=== PATIENT | female | born 1960 | race Caucasian/White ===

== ENCOUNTER 2018-03-26 08:50 | Inpatient (IN) ==
[2018-03-26] MEDS ORDERED: Sod Chloride 0.9% Inj 1,000 ML IV.SIG ONE (09:30)
[2018-03-26] MEDS ORDERED: Morphine Inj 4 MG/ML Vial IV.PUSH ONE (09:30)
--- NOTE | 2018-03-26 09:34 | ED ---
HPI General Chief Complaint: Abdominal Pain Stated Complaint: Abd pain/Phy sent Time Seen by Provider: 03/26/18 09:23 History of Present Illness HPI narrative: Patient presents to the emergency department complaining of lower abdominal pain. Pain is primarily in the right lower quadrant with radiation to suprapubic area, cramping, started 2 days ago, decreased appetite, 9.5 out of 10, no aggravating factors, alleviated somewhat by acetaminophen. Patient tried to take Bentyl but that did not help the symptoms. Is also reporting decreased appetite, subjective fever and chills, nausea but no vomiting, loose stools which is chronic for her. She denies vaginal discharge or dysuria. Related Data Home Medications Medication Instructions Recorded Confirmed atenolol 100 mg PO DAILY 03/26/18 03/26/18 azathioprine 50 mg PO TID 03/26/18 03/26/18 dicyclomine 10 mg PO QID 03/26/18 03/26/18 lisinopril 10 mg PO DAILY 03/26/18 03/26/18 mesalamine 800 mg PO TID 03/26/18 03/26/18 simvastatin [Zocor] 20 mg PO QPM 03/26/18 03/26/18 spironolactone 25 mg PO DAILY 03/26/18 03/26/18 Allergies Allergy/AdvReac Type Severity Reaction Status Date / Time No Known Allergies Allergy Verified 03/26/18 09:13 Review of Systems ROS: all other systems reviewed are negative [facility] Medical History Medical History Crohn's disease (Acute) HBP (high blood pressure) (Acute) High cholesterol (Acute) Surgical History Surgical History History of hip surgery (Acute) Social History Social History Substance History: No History of Abuse Second Hand Smoke Exposure: No Smoking Status: Never smoker How Often Do You Have a Drink Containing Alcohol: 2 to 4 times a month Recent Travel in [facility] within the Last 8 Weeks: No Recent Out of Country Travel within the Last 8 Weeks: No Immunization History Tetanus Immunization: >5 Years Hx Influenza Vaccine This Season: No Exam Narrative Exam Narrative: GENERAL: No acute distress. SKIN: Focused skin assessment warm/dry. HEAD: Atraumatic. Normocephalic. EYES: Pupils equal and round. No scleral icterus. No injection or drainage. ENT: No nasal bleeding or discharge. Mucous membranes pink and moist. NECK: Trachea midline. No JVD. CARDIOVASCULAR: Regular rate and rhythm. No murmur appreciated. RESPIRATORY: No accessory muscle use. Clear to auscultation. Breath sounds equal bilaterally. GASTROINTESTINAL: Abdomen soft, right lower quadrant tenderness, obese. Hepatic and splenic margins not palpable. MUSCULOSKELETAL: No obvious deformities. No clubbing. No cyanosis. No edema. NEUROLOGICAL: Awake and alert. No obvious cranial nerve deficits. Motor grossly within normal limits. Normal speech. PSYCHIATRIC: Appropriate mood and affect; insight and judgment normal. Course Initial Documented Vital Signs Temperature 98.1 F 03/26/18 08:52 Pulse Rate 85 03/26/18 08:52 Respiratory Rate 20 03/26/18 08:52 Blood Pressure 156/88 H 03/26/18 08:52 Pulse Oximetry 97 03/26/18 08:52 Last Documented Vital Signs Temperature 98.0 F 03/26/18 10:31 Pulse Rate 78 03/26/18 10:31 Respiratory Rate 16 03/26/18 10:31 Blood Pressure 120/83 03/26/18 10:31 Pulse Oximetry 99 03/26/18 10:31 Medical Decision Making [facility] Narrative Medical decision making narrative: Patient presents to the emergency department complaining of abdominal pain. Patient placed on court recording monitor, continuous pulse ox, and IV access obtained. Labs, CT abdomen and pelvis, 1 L IV normal saline, 2 mg IV morphine, and 4 mg IV Zofran ordered. Labs: leukocytosis, + UTI, increased PLT CT abd/pelvis: CONCLUSION:1. Patient's symptoms are probably due to some hydronephrosis and hydroureter of the right kidney.2. At least partial renal obstruction is due to the inflammatory process identified in the deep pelvis. There is thickening of the distal descending and most of the sigmoid colon with pericolonic stranding.The right ureter passes through this inflammatory process.3. Findings in the sigmoid are nonspecific. This could represent Crohn' s disease as reported in the clinical history. However, other entities include an inflammatory carcinoma or possibly diverticulitis although no discrete diverticula are identified. Endoscopy may be useful for further evaluation.4. Stable, benign-appearing 1 cm cyst laterally in the midpole of the left kidney. Patient given cipro 400mg IV and flagyl 500mg IV, will be admitted. Differential Diagnosis Differential Diagnosis: Appendicitis, UTI, kidney stone, pyelonephritis, Lab Data Result diagrams: 03/26/18 09:49 03/26/18 09:49 Lab Results 03/26/18 03/26/18 03/26/18 Range/Units 09:49 09:49 09:49 WBC 15.0 H (4.0-11.0) th/mm3 RBC 4.47 (4.00-5.30) mil/mm3 Hgb 12.8 (11.6-15.3) gm/dL Hct 38.6 (35.0-46.0) % MCV 86.5 (80.0-100.0) fL MCH 28.6 (27.0-34.0) pg MCHC 33.0 (32.0-36.0) % RDW 16.3 (11.6-17.2) % Plt Count 466 H (150-450) th/mm3 MPV 7.4 (7.0-11.0) fL Neut % (Auto) 87.8 H (16.0-70.0) % Lymph % (Auto) 5.1 L (9.0-44.0) % Tate % (Auto) 6.6 (0.0-8.0) % Eos % (Auto) 0.3 (0.0-4.0) % Baso % (Auto) 0.2 (0.0-2.0) % Neut # (Auto) 13.2 H (1.8-7.7) th/mm3 Lymph # (Auto) 0.8 L (1.0-4.8) th/mm3 Tate # (Auto) 1.0 H (0.0-0.9) th/mm3 Eos # (Auto) 0.0 (0.0-0.4) th/mm3 Baso # (Auto) 0.0 (0.0-0.2) th/mm3 WBC Differential . Differential Comment Auto diff final Sodium 136 (136-145) meq/L Potassium 3.6 (3.5-5.1) meq/L Chloride 100 (98-107) meq/L Carbon Dioxide 27.4 (21.0-32.0) meq/L Anion Gap 9 (5-15) meq/L BUN 13 (7-18) mg/dL Creatinine 0.70 (0.50-1.00) mg/dL Estimated GFR 86 L (>89) mL/min Random Glucose 123 H (74-106) mg/dL Lactic Acid 1.3 (0.4-2.0) mmol/L Calcium 9.3 (8.5-10.1) mg/dL Total Bilirubin 0.5 (0.2-1.0) mg/dL AST 13 L (15-37) U/L ALT 17 (10-53) U/L Alkaline Phosphatase 86 (45-117) U/L Total Protein 8.4 H (6.4-8.2) g/dL Albumin 3.1 L (3.4-5.0) g/dL Lipase 97 (73-393) U/L Urine Color (Yellw/Straw) Urine Clarity (Clear) Urine pH (5.0-8.5) Ur Specific [place] (1.002-1.035) Urine Protein (Neg-Trace) mg/dL Urine Glucose (UA) (Negative) mg/dL Urine Ketones (Negative) mg/dL Urine Occult Blood (Negative) Urine Nitrate (Negative) Urine Bilirubin (Negative) Urine Urobilinogen (Less than 2) mg/dL Ur Leukocyte Esterase (Negative) Urine RBC (0-3) /hpf Urine WBC (0-5) /hpf Ur Squamous Epith Cells (0-5) /hpf Urine Bacteria (None) /hpf Urine Mucus (Occasional) /lpf Micro UA Comment Urine Culture Comments 03/26/18 Range/Units 09:49 WBC (4.0-11.0) th/mm3 RBC (4.00-5.30) mil/mm3 Hgb (11.6-15.3) gm/dL Hct (35.0-46.0) % MCV (80.0-100.0) fL MCH (27.0-34.0) pg MCHC (32.0-36.0) % RDW (11.6-17.2) % Plt Count (150-450) th/mm3 MPV (7.0-11.0) fL Neut % (Auto) (16.0-70.0) % Lymph % (Auto) (9.0-44.0) % Tate % (Auto) (0.0-8.0) % Eos % (Auto) (0.0-4.0) % Baso % (Auto) (0.0-2.0) % Neut # (Auto) (1.8-7.7) th/mm3 Lymph # (Auto) (1.0-4.8) th/mm3 Tate # (Auto) (0.0-0.9) th/mm3 Eos # (Auto) (0.0-0.4) th/mm3 Baso # (Auto) (0.0-0.2) th/mm3 WBC Differential Differential Comment Sodium (136-145) meq/L Potassium (3.5-5.1) meq/L Chloride (98-107) meq/L Carbon Dioxide (21.0-32.0) meq/L Anion Gap (5-15) meq/L BUN (7-18) mg/dL Creatinine (0.50-1.00) mg/dL Estimated GFR (>89) mL/min Random Glucose (74-106) mg/dL Lactic Acid (0.4-2.0) mmol/L Calcium (8.5-10.1) mg/dL Total Bilirubin (0.2-1.0) mg/dL AST (15-37) U/L ALT (10-53) U/L Alkaline Phosphatase (45-117) U/L Total Protein (6.4-8.2) g/dL Albumin (3.4-5.0) g/dL Lipase (73-393) U/L Urine Color Cecy (Yellw/Straw) Urine Clarity Cloudy H (Clear) Urine pH 5.0 (5.0-8.5) Ur Specific [place] 1.023 (1.002-1.035) Urine Protein 30 H (Neg-Trace) mg/dL Urine Glucose (UA) Negative (Negative) mg/dL Urine Ketones 20 (Negative) mg/dL Urine Occult Blood Negative (Negative) Urine Nitrate Positive H (Negative) Urine Bilirubin Negative (Negative) Urine Urobilinogen Less than 2 (Less than 2) mg/dL Ur Leukocyte Esterase Moderate H (Negative) Urine RBC 2 (0-3) /hpf Urine WBC 47 H (0-5) /hpf Ur Squamous Epith Cells 10 (0-5) /hpf Urine Bacteria Moderate H (None) /hpf Urine Mucus Few H (Occasional) /lpf Micro UA Comment Culture indicated Urine Culture Comments Culture indicated Imaging Data Radiologist's impression: Abdomen/Pelvis CT 03/26/18 09:30 CONCLUSION: 1. Patient's symptoms are probably due to some hydronephrosis and hydroureter of the right kidney. 2. At least partial renal obstruction is due to the inflammatory process identified in the deep pelvis. There is thickening of the distal descending and most of the sigmoid colon with pericolonic stranding. The right ureter passes through this inflammatory process. 3. Findings in the sigmoid are nonspecific. This could represent Crohn's disease as reported in the clinical history. However, other entities include an inflammatory carcinoma or possibly diverticulitis although no discrete diverticula are identified. Endoscopy may be useful for further evaluation. 4. Stable, benign-appearing 1 cm cyst laterally in the midpole of the left kidney. Discharge Plan Discharge Disposition Patient Disposition: 30 Still Patient Discharge Condition Condition: Stable Discharge Details Diagnosis: Colitis Physicians Team ED Provider: Claudette Wright Primary Care Provider: Laron Jacobs Rxs /Orders / Referrals /Forms Prescriptions: No Action atenolol 100 mg Tablet 100 mg PO DAILY RF: 0 azathioprine 50 mg Tablet 50 mg PO TID RF: 0 spironolactone 25 mg Tablet 25 mg PO DAILY RF: 0 simvastatin [Zocor] 20 mg Tablet 20 mg PO QPM RF: 0 lisinopril 10 mg Tablet 10 mg PO DAILY RF: 0 dicyclomine 10 mg Capsule 10 mg PO QID RF: 0 mesalamine 400 mg Capsule (With Del Rel Tablets) 800 mg PO TID RF: 0 Status ED Status: Admitted Patient
[2018-03-26 10:04] LABS: Baso % (Auto) 0.2 % (0.0-2.0); Eos % (Auto) 0.3 % (0.0-4.0); Hematocrit 38.6 % (35.0-46.0); Hemoglobin 12.8 gm/dL (11.6-15.3); Lymph # (Auto) 0.8 th/mm3 (1.0-4.8); Lymph % (Auto) 5.1 % (9.0-44.0); Mean Corpuscular Hemoglobin 28.6 pg (27.0-34.0); Mean Corpuscular Volume 86.5 fL (80.0-100.0); Mean Platelet Volume 7.4 fL (7.0-11.0); Mono % (Auto) 6.6 % (0.0-8.0); Neut # (Auto) 13.2 th/mm3 (1.8-7.7); Neut % (Auto) 87.8 % (16.0-70.0); Platelet Count 466 th/mm3 (150-450); Red Blood Count 4.47 mil/mm3 (4.00-5.30); Red Cell Distribution Width 16.3 % (11.6-17.2)
[2018-03-26 10:09] LABS: Bacteria,Urine Moderate /hpf; Bilirubin,Urine Negative (Negative); Clarity,Urine Cloudy (Clear); Color,Urine Amber (Yellw/Straw); Glucose,Urine (UA) Negative (Negative); Leukocyte Esterase,Urine Moderate (Negative); Mucus,Urine Few /lpf (Occasional); Nitrite,Urine Positive (Negative); Specific Gravity,Urine 1.023 (1.002-1.035); Squamous Epithelial Cell,Urine 10 /hpf (0-5)
[2018-03-26 10:22] LABS: Albumin 3.1 g/dL (3.4-5.0); Anion Gap 9 meq/L (5-15); Aspartate Aminotransferase 13 U/L (15-37); Blood Urea Nitrogen 13 mg/dL (7-18); Calcium 9.3 mg/dL (8.5-10.1); Carbon Dioxide 27.4 meq/L (21.0-32.0); Chloride 100 meq/L (98-107); Glomerular Filtration Rate 86 mL/min (>89); Glucose,Random 123 mg/dL (74-106); Lipase 97 U/L (73-393); Potassium 3.6 meq/L (3.5-5.1); Sodium 136 meq/L (136-145)
[2018-03-26 10:24] LABS: Alanine Aminotransferase 17 U/L (10-53)
[2018-03-26 10:26] LABS: Alkaline Phosphatase 86 U/L (45-117); Total Protein 8.4 g/dL (6.4-8.2)
--- NOTE | 2018-03-26 11:29 | CT ---
EXAM DATE: 03/26/2018 11:16 AM EDT AGE/SEX: 57 years / Female INDICATIONS: Right sided abdomen pain for ten days. CLINICAL DATA: This is the patient's initial encounter. Patient reports that signs and symptoms have been present for 2 weeks and indicates a pain score of 7/10. MEDICAL/SURGICAL HISTORY: . Crohn's . right hip replacement ORAL CONTRAST: No oral contrast ingested. RADIATION DOSE: 11.75 CTDI (mGy) COMPARISON: POI, CT ABDOMEN AND PELVIS W AND W/O CONTRAST, 08/22/2017. . TECHNIQUE: Multiple contiguous axial images were obtained through the abdomen and pelvis following b olus infusion of 73 ml Omnipaque 350 (iohexol) nonionic water-soluble contrast as a single exam dos e. No oral contrast ingested. Using automated exposure control and adjustment of the mA and/or kV ac cording to patient size, radiation dose was kept as low as reasonably achievable to obtain optimal di agnostic quality images. DICOM format image data is available electronically for review and comparis on. FINDINGS: Lower Lungs: The visualized lower lungs are clear. Liver: The liver has a homogeneous density without space-occupying lesion. There is no dilation of th e biliary tree. Spleen: Homogeneous density without enlargement. Pancreas: Unremarkable without mass or calcification. Kidneys: Benign-appearing 1.1 cm cyst laterally in the midpole of the left kidney. Mild hydronephros is and hydroureter of the right kidney appears to be due to partial distal ureteric obstruction as it traverses through the inflammatory process adjacent to the sigmoid in the deep pelvis. Adrenal Glands: Unremarkable. Aorta: The aorta and proximal iliac vessels are grossly unremarkable without aneurysmal dilation. Bowel/Mesentery: There is an abnormal appearance of the distal descending colon and most of the sigm oid. The bowel wall is thickened in this location with pericolonic stranding. This does represent int erval worsening from the prior exam. No significant diverticular disease is identified, however. Abdominal Wall: Intact. Retroperitoneum: No evidence of adenopathy in the retrocrural, para-aortic, or deep pelvic regions. Bladder: Contours are smooth. Reproductive Organs: No abnormal masses or calcifications seen. Inguinal: The inguinal region is unremarkable without evidence of adenopathy. Bony Structures: Vacuum joint phenomenon in the SI joints bilaterally. There is also some asymmetric sclerosis on the left ilium characteristic of a sacroiliitis Post Contrast: No abnormal areas of enhancement seen. CONCLUSION: 1. Patient's symptoms are probably due to some hydronephrosis and hydroureter of the right kidney. 2. At least partial renal obstruction is due to the inflammatory process identified in the deep pelv is. There is thickening of the distal descending and most of the sigmoid colon with pericolonic stran ding. The right ureter passes through this inflammatory process. 3. Findings in the sigmoid are nonspecific. This could represent Crohn's disease as reported in the clinical history. However, other entities include an inflammatory carcinoma or possibly diverticuliti s although no discrete diverticula are identified. Endoscopy may be useful for further evaluation. 4. Stable, benign-appearing 1 cm cyst laterally in the midpole of the left kidney. Electronically signed by: Anthony Cuellar MD 03/26/2018 11:28 AM EDT
[2018-03-26] MEDS ORDERED: Ciprofloxacin 400 MG/200 ML 400 MG/200 ML PIGGYBACK IV.SIG ONE (11:36)
[2018-03-26] MEDS ORDERED: Zolpidem Tartrate 5 MG Tablet PO PRN (12:17)
[2018-03-26] MEDS ORDERED: Acetaminophen 325 MG Tablet PO PRN (12:19)
[2018-03-26] MEDS ORDERED: Naloxone Inj 0.4 MG/ML Vial IV.PUSH PRN (12:19)
[2018-03-26] MEDS: KCL 20 mEq/D5W/NaCl 0.45% Inj 1,000 ML IV.CONT SCH (12:58)
--- NOTE | 2018-03-26 13:00 | P.HPIM ---
History of Present Illness Primary Care Physician: Laron Jacobs MD Chief Complaint: Abdominal pain nausea History of Present Illness: 57-year-old white female with a history of Crohn's disease, hypertension, hyperlipidemia presents to the emergency room with a 10 day history of worsening symptoms of right sided abdominal pain mostly in the lower area associated with nausea and intermittent fevers and chills. She has not had any active vomiting but had poor appetite during the past week. She states there is no significant changes in her bowel movement but does describe it as loose and nonbloody. She states that she is currently on 2 different types of medication for her Crohn's disease and is being seen by Dr. Weems. She has not had any changes in medication or dosages recently. She denies any recent sick contacts. She denies any symptoms of dysuria, urinary frequency, urgency, nor hematuria or any unusual vaginal discharge. - Diagnosis (1) Colitis Inpatient Certification: I certify that the inpatient services were ordered in accordance with Medicare regulations governing the order. This includes certification that hospital inpatient services are reasonable and necessary and in the case of services not specified as inpatient-only under 42 CFR 419.22(n), that they are appropriately provided as inpatient services in accordance to with the 2-midnight benchmark under 43 CFR 412.3(e) Estimated Total Length of Stay (Days): 3 Plans for Post Hospital Care: Home Review of Systems All other systems reviewed negative except as stated in HPI PMFSH - History History Provided By: Patient - Medical History Medical History: Medical History (Last Reviewed 03/26/18 @ 12:52 by Jazmin Freire MD) Crohn's disease HBP (high blood pressure) High cholesterol - Surgical History Surgical History: Surgical History (Last Updated 03/26/18 @ 12:52 by Jazmin Freire MD) History of hip surgery - Family History Family History: Family History (Last Updated 03/26/18 @ 12:53 by Jazmin Freire MD) Mother Family history of breast cancer Parkinson disease Father COPD (chronic obstructive pulmonary disease) - Tobacco History Second Hand Smoke Exposure: No Smoking Status: Never smoker - Alcohol History How Often Do You Have a Drink Containing Alcohol: 2 to 4 times a month - Substance Use History Substance History: No History of Abuse - Travel History Recent Travel in the [place] Within the Last 8 Weeks: No Recent Travel Out of the Country Within the Last 8 Weeks: No - Immunization History Tetanus Immunization: >5 Years Hx Influenza Vaccine This Season: No Medications and Allergies Active Medications: Active Medications Acetaminophen (Tylenol) 650 mg PO Q6H PRN PRN Reason: PAIN SCALE 1 TO 2 Hydrocodone Bitart/Acetaminophen ([place] 5/325) 1 tab PO Q4H PRN PRN Reason: PAIN SCALE 3 TO 5 Hydrocodone Bitart/Acetaminophen ([place] 7.5/325) 1 tab PO Q4H PRN PRN Reason: PAIN SCALE 6 TO 10 Enoxaparin Sodium (Lovenox Inj) 40 mg SQ Q24H ADALBERTO Ciprofloxacin/Dextrose (Cipro 400 Mg/200 Ml Inj) 400 mg in 200 mls @ 200 mls/ hr IV.SIG Q12H ADALBERTO Metronidazole/Sodium Chloride (Flagyl 500 Mg Inj) 100 mls @ 100 mls/hr IV.SIG Q8H ADALBERTO Potassium Chloride/Dextrose/Sod Cl (D5w/1/2ns + Kcl 20 Meq Inj) 1,000 mls @ 100 mls/hr IV.CONT .Q10H ADALBERTO Morphine Sulfate (Morphine Inj) 4 mg IV.PUSH Q3H PRN PRN Reason: PAIN 6-10;IF UNABLE TO TAKE PO Naloxone HCl (Narcan Inj) 0.4 mg IV.PUSH UNSCH PRN PRN Reason: SEE LABEL COMMENTS Ondansetron HCl (Zofran Inj) 4 mg IV.PUSH Q6H PRN PRN Reason: NAUSEA OR VOMITING Zolpidem Tartrate (Ambien) 5 mg PO HS PRN PRN Reason: INSOMNIA Allergies Allergy/AdvReac Type Severity Reaction Status Date / Time No Known Allergies Allergy Verified 03/26/18 09:13 Home Medications Medication Instructions Recorded Confirmed Type atenolol 100 mg PO DAILY 03/26/18 03/26/18 History azathioprine 50 mg PO TID 03/26/18 03/26/18 History dicyclomine 10 mg PO QID 03/26/18 03/26/18 History lisinopril 10 mg PO DAILY 03/26/18 03/26/18 History mesalamine 800 mg PO TID 03/26/18 03/26/18 History simvastatin [Zocor] 20 mg PO QPM 03/26/18 03/26/18 History spironolactone 25 mg PO DAILY 03/26/18 03/26/18 History Exam Vital signs: Vital Signs 03/26/18 08:52 03/26/18 09:45 03/26/18 10:31 Temperature 98.1 F 98.0 F Pulse Rate 85 78 Respiratory Rate 20 17 16 Blood Pressure 156/88 H 120/83 Pulse Oximetry 97 99 03/26/18 12:17 Temperature 97.8 F Pulse Rate 74 Respiratory Rate 16 Blood Pressure 126/77 Pulse Oximetry 98 Intake & Output 03/25/18 03/26/18 03/26/18 18:59 06:59 18:59 Intake Total 1000 / 1000 Balance 1000 / 1000 Weight 97.522 kg Intake: IV 1000 / 1000 NS Inj 1,000 ML @ Wide Open IV. 1000 / 1000 SIG BOLUS ONE Rx#:[id number] Narrative: GENERAL: Well-nourished, obese white female in no acute distress SKIN: Warm and dry. HEAD: Atraumatic. Normocephalic. EYES: Pupils equal and round. No scleral icterus. No injection or drainage. ENT: No nasal bleeding or discharge. Mucous membranes pink and moist. NECK: Trachea midline. No JVD. CARDIOVASCULAR: Regular rate and rhythm. RESPIRATORY: No accessory muscle use. Clear to auscultation. Breath sounds equal bilaterally. GASTROINTESTINAL: Abdomen soft, right lower quadrant tenderness on palpation with no guarding or rebound, nondistended. Hepatic and splenic margins not palpable. Normoactive bowel sounds MUSCULOSKELETAL: Extremities without clubbing, cyanosis, or edema. No obvious deformities. NEUROLOGICAL: Awake and alert to person place time situation. No obvious cranial nerve deficits. Motor grossly within normal limits. Five out of 5 muscle strength in the arms and legs. Normal speech. PSYCHIATRIC: Appropriate mood and affect; insight and judgment normal. Results - Labs CBC & Chem 7: 03/26/18 09:49 03/26/18 09:49 Labs: Short CBC 03/26/18 Range/Units 09:49 WBC 15.0 H (4.0-11.0) th/mm3 Hgb 12.8 (11.6-15.3) gm/dL Hct 38.6 (35.0-46.0) % Plt Count 466 H (150-450) th/mm3 BMP 03/26/18 09:49 Sodium 136 Potassium 3.6 Chloride 100 Carbon Dioxide 27.4 BUN 13 Creatinine 0.70 Calcium 9.3 Liver Function 03/26/18 Range/Units 09:49 Total Bilirubin 0.5 (0.2-1.0) mg/dL AST 13 L (15-37) U/L ALT 17 (10-53) U/L Alkaline Phosphatase 86 (45-117) U/L Albumin 3.1 L (3.4-5.0) g/dL Urine 03/26/18 Range/Units 09:49 Urine Color Cecy (Yellw/Straw) Urine Clarity Cloudy H (Clear) Urine pH 5.0 (5.0-8.5) Ur Specific [place] 1.023 (1.002-1.035) Urine Protein 30 H (Neg-Trace) mg/dL Urine Glucose (UA) Negative (Negative) mg/dL - Imaging Impressions Abdomen/Pelvis CT 03/26/18 09:30 CONCLUSION: 1. Patient's symptoms are probably due to some hydronephrosis and hydroureter of the right kidney. 2. At least partial renal obstruction is due to the inflammatory process identified in the deep pelvis. There is thickening of the distal descending and most of the sigmoid colon with pericolonic stranding. The right ureter passes through this inflammatory process. 3. Findings in the sigmoid are nonspecific. This could represent Crohn's disease as reported in the clinical history. However, other entities include an inflammatory carcinoma or possibly diverticulitis although no discrete diverticula are identified. Endoscopy may be useful for further evaluation. 4. Stable, benign-appearing 1 cm cyst laterally in the midpole of the left kidney. Caprini VTE Risk Assessment Caprini VTE Risk Assessment: Moderate/High Risk (score >= 2) Caprini Risk Assessment Model: Point Value = 1 Point Value = 2 Point Value = 3 Point Value = 5 Age 41-60 Minor surgery BMI > 25 kg/m2 Swollen legs Varicose veins or History of unexplained or recurrent spontaneous Oral contraceptives or hormone replacement Sepsis (< 1 month) Serious lung disease, including pneumonia (< 1 month) Abnormal pulmonary function Acute myocardial infarction Congestive heart failure (< 1 month) History of inflammatory bowel disease Medical patient at bed rest Age 61-74 Arthroscopic surgery Major open surgery (> 45 min) Laparoscopic surgery (> 45 min) Malignancy Confined to bed (> 72 hours) Immobilizing plaster cast Central venous access Age >= 75 History of VTE Family history of VTE Factor V Leiden Prothrombin [id number] Lupus anticoagulant Anticardiolipin antibodies Elevated serum homocysteine Heparin-induced thrombocytopenia Other congenital or acquired thrombophilia Stroke (< 1 month) Elective arthroplasty Hip, pelvis, or leg fracture Acute spinal cord injury (< 1 month) Prophylaxis Regimen: Total Risk Factor Score Risk Level Prophylaxis Regimen 0-1 Low Early ambulation 2 Moderate Order ONE of the following: *Sequential Compression Device (SCD) *Heparin 5000 units SQ BID 3-4 Higher Order ONE of the following medications: *Heparin 5000 units SQ TID *Enoxaparin/Lovenox 40 mg SQ daily (WT < 150 kg, CrCl > 30 mL/min) *Enoxaparin/Lovenox 30 mg SQ daily (WT < 150 kg, CrCl > 10-29 mL/min) *Enoxaparin/Lovenox 30 mg SQ BID (WT < 150 kg, CrCl > 30 mL/min) AND/OR *Sequential Compression Device (SCD) 5 or more Highest Order ONE of the following medications: *Heparin 5000 units SQ TID (Preferred with Epidurals) *Enoxaparin/Lovenox 40 mg SQ daily (WT < 150 kg, CrCl > 30 mL/min) *Enoxaparin/Lovenox 30 mg SQ daily (WT < 150 kg, CrCl > 10-29 mL/min) *Enoxaparin/Lovenox 30 mg SQ BID (WT < 150 kg, CrCl > 30 mL/min) AND *Sequential Compression Device (SCD) Assessment and Plan - Assessment (1) Colitis Code(s): K52.9 - Noninfective gastroenteritis and colitis, unspecified Status : Acute - Plan 57-year-old white female with a history of Crohn's disease presents with 10 day history of intractable worsening right lower abdominal pain 1. Acute colitis suspect acute exacerbation of Crohn's diseasekeep patient n.p.o. with pain control. IV fluid hydration and supportive care. Start IV Cipro and Flagyl. Obtain a GI consultation for further recommendations. 2. Hypertension, chronic essential resume home QUINTON inhibitor, IV Vasotec as needed for uncontrolled blood pressure. 3. Hyperlipidemiaresume statin. 4. Mild right hydronephrosis with partial renal obstructionurology evaluation for further recommendations. External Colon Inflammation likely contributing to this. 5. DVT prophylaxisLovenox.
[2018-03-26] MEDS: Enoxaparin Inj 40 MG/0.4 ML Syringe SQ SCH (13:03)
--- NOTE | 2018-03-26 13:57 | P.CONGI ---
History of Present Illness Consult date: 03/26/18 Consult reason: Crohns Chief complaint: colitis, UTI, h/o Crohn's History of Present Illness: This is a 57 yo F with GI history significant for Crohns disease, followed outpatient by Dr. Weems, currently she is on Azathioprine and Mesalamine TID. Pt was previously advised to be on Remicade but due to a high copay she was never started on this. Pt presented to the ER today with complaints of RLQ abdominal pain, states pain has been intermittent for ten days but has become more constant over the past three days. Pain is described as sharp and aching has been preventing pt from being able to sleep. States pain radiates towards midline, but also has a pain in her lower back. States has multiple, loose BMs a day, which is normal for her but they have had more mucous in them lately. Denies any fecal incontinence, hematochezia, and melena. Reports some nausea but denies any emesis. Office records reviewed, pt had a colonoscopy Aug 25 during active Crohns flare and then repeat colonoscopy on Sep 08 --> Normal terminal ileum, abnormal mucosa in the cecum, sigmoid, ascending, transverse, and descending colon. Mucosa was erythematous, friable and had granularity, loss of vascularity, scarring, deep ulcers, vascular ectasia, erosions and pseudopolyps. Colonic mucosa appeared normal in the rectum. Pt reports history of KELI when she was first diagnosed with Crohns in 2009, renal function improved to normal and she has not recently followed up with urology. Pt denies any flank pain, urinary frequency or incontinence. Does report urinary urgency but states this is chronic. Denies family history of colon cancer. Drinks alcohol 1-2 times a week. Denies smoking. <Marcelle Vargas - Last Filed: 03/26/18 13:59> Review of Systems Constitutional: Reports fever(s), Reports night sweats, Reports weight loss Gastrointestinal: Reports abdominal pain, Reports loose stools, Reports nausea, Denies black, tarry stools, Denies bright, red blood in stools, Denies vomiting Comments: mucous stools <Marcelle Vargas - Last Filed: 03/26/18 13:59> PMFSH - History History Provided By: Patient - Medical History Medical History: Medical History (Last Reviewed 03/26/18 @ 12:52 by Jazmin Freire MD) Crohn's disease HBP (high blood pressure) High cholesterol - Surgical History Surgical History: Surgical History (Last Updated 03/26/18 @ 12:52 by Jazmin Freire MD) History of hip surgery - Family History Family History: Family History (Last Updated 03/26/18 @ 12:53 by Jazmin Freire MD) Mother Family history of breast cancer Parkinson disease Father COPD (chronic obstructive pulmonary disease) - Tobacco History Second Hand Smoke Exposure: No Smoking Status: Never smoker - Alcohol History How Often Do You Have a Drink Containing Alcohol: 2 to 4 times a month - Substance Use History Substance History: No History of Abuse - Travel History Recent Travel in the [place] Within the Last 8 Weeks: No Recent Travel Out of the Country Within the Last 8 Weeks: No - Immunization History Tetanus Immunization: >5 Years Hx Influenza Vaccine This Season: No <Marcelle Vargas - Last Filed: 03/26/18 13:59> - Medical History Medical History: Medical History (Last Reviewed 03/26/18 @ 12:52 by Jazmin Freire MD) Crohn's disease HBP (high blood pressure) High cholesterol - Surgical History Surgical History: Surgical History (Last Updated 03/26/18 @ 12:52 by Jazmin Freire MD) History of hip surgery - Family History Family History: Family History (Last Updated 03/26/18 @ 12:53 by Jazmin Freire MD) Mother Family history of breast cancer Parkinson disease Father COPD (chronic obstructive pulmonary disease) <Cole Ricardo - Last Filed: 03/26/18 21:50> Medications and Allergies Active Medications: Active Medications Acetaminophen (Tylenol) 650 mg PO Q6H PRN PRN Reason: PAIN SCALE 1 TO 2 Hydrocodone Bitart/Acetaminophen ([place] 5/325) 1 tab PO Q4H PRN PRN Reason: PAIN SCALE 3 TO 5 Hydrocodone Bitart/Acetaminophen ([place] 7.5/325) 1 tab PO Q4H PRN PRN Reason: PAIN SCALE 6 TO 10 Last Admin: 03/26/18 13:08 Dose: 1 tab Atenolol (Tenormin) 100 mg PO DAILY [facility] Azathioprine (Imuran) 50 mg PO TID [facility] Dicyclomine HCl (Bentyl) 10 mg PO QID [facility] Enalaprilat (Vasotec Inj) 1.25 mg IV.PUSH Q6H PRN PRN Reason: SEE LABEL COMMENTS Enoxaparin Sodium (Lovenox Inj) 40 mg SQ Q24H [facility] Last Admin: 03/26/18 13:03 Dose: 40 mg Ciprofloxacin/Dextrose (Cipro 400 Mg/200 Ml Inj) 400 mg in 200 mls @ 200 mls/ hr IV.SIG Q12H [facility] Metronidazole/Sodium Chloride (Flagyl 500 Mg Inj) 100 mls @ 100 mls/hr IV.SIG Q8H [facility] Potassium Chloride/Dextrose/Sod Cl (D5w/1/2ns + Kcl 20 Meq Inj) 1,000 mls @ 100 mls/hr IV.CONT .Q10H [facility] Last Admin: 03/26/18 12:58 Dose: 100 mls/hr Lisinopril (Prinivil) 10 mg PO DAILY [facility] Morphine Sulfate (Morphine Inj) 4 mg IV.PUSH Q3H PRN PRN Reason: PAIN 6-10;IF UNABLE TO TAKE PO Naloxone HCl (Narcan Inj) 0.4 mg IV.PUSH UNSCH PRN PRN Reason: SEE LABEL COMMENTS Non-Formulary Medication (Mesalamine [Mesalamine]) 800 mg PO TID [facility] Non-Formulary Medication (Simvastatin [Zocor]) 20 mg PO QPM [facility] Ondansetron HCl (Zofran Inj) 4 mg IV.PUSH Q6H PRN PRN Reason: NAUSEA OR VOMITING Spironolactone (Aldactone) 25 mg PO DAILY [facility] Zolpidem Tartrate (Ambien) 5 mg PO HS PRN PRN Reason: INSOMNIA <Marcelle Vargas - Last Filed: 03/26/18 13:59> Active Medications: Active Medications Acetaminophen (Tylenol) 650 mg PO Q6H PRN PRN Reason: PAIN SCALE 1 TO 2 Hydrocodone Bitart/Acetaminophen ([place] 5/325) 1 tab PO Q4H PRN PRN Reason: PAIN SCALE 3 TO 5 Last Admin: 03/26/18 19:19 Dose: 1 tab Hydrocodone Bitart/Acetaminophen ([place] 7.5/325) 1 tab PO Q4H PRN PRN Reason: PAIN SCALE 6 TO 10 Last Admin: 03/26/18 13:08 Dose: 1 tab Atenolol (Tenormin) 100 mg PO DAILY [facility] Azathioprine (Imuran) 50 mg PO TID [facility] Last Admin: 03/26/18 21:15 Dose: 50 mg Dicyclomine HCl (Bentyl) 10 mg PO QID [facility] Last Admin: 03/26/18 21:16 Dose: 10 mg Enalaprilat (Vasotec Inj) 1.25 mg IV.PUSH Q6H PRN PRN Reason: SEE LABEL COMMENTS Enoxaparin Sodium (Lovenox Inj) 40 mg SQ Q24H [facility] Last Admin: 03/26/18 13:03 Dose: 40 mg Ciprofloxacin/Dextrose (Cipro 400 Mg/200 Ml Inj) 400 mg in 200 mls @ 200 mls/ hr IV.SIG Q12H [facility] Metronidazole/Sodium Chloride (Flagyl 500 Mg Inj) 100 mls @ 100 mls/hr IV.SIG Q8H [facility] Potassium Chloride/Dextrose/Sod Cl (D5w/1/2ns + Kcl 20 Meq Inj) 1,000 mls @ 100 mls/hr IV.CONT .Q10H [facility] Last Admin: 03/26/18 12:58 Dose: 100 mls/hr Lisinopril (Prinivil) 10 mg PO DAILY [facility] Mesalamine (Asacol Hd Dr) 800 mg PO TID [facility] Last Admin: 03/26/18 21:14 Dose: 800 mg Methylprednisolone Sodium Succinate (Solumedrol Inj) 40 mg IV.PUSH Q8HR [facility] Last Admin: 03/26/18 21:18 Dose: 40 mg Morphine Sulfate (Morphine Inj) 4 mg IV.PUSH Q3H PRN PRN Reason: PAIN 6-10;IF UNABLE TO TAKE PO Last Admin: 03/26/18 21:33 Dose: 4 mg Naloxone HCl (Narcan Inj) 0.4 mg IV.PUSH UNSCH PRN PRN Reason: SEE LABEL COMMENTS Ondansetron HCl (Zofran Inj) 4 mg IV.PUSH Q6H PRN PRN Reason: NAUSEA OR VOMITING Pravastatin Sodium (Pravachol) 40 mg PO QPM [facility] Last Admin: 03/26/18 21:15 Dose: 40 mg Spironolactone (Aldactone) 25 mg PO DAILY [facility] Zolpidem Tartrate (Ambien) 5 mg PO HS PRN PRN Reason: INSOMNIA <Hemaidan,Ammar - Last Filed: 03/26/18 21:50> Allergies Allergy/AdvReac Type Severity Reaction Status Date / Time No Known Allergies Allergy Verified 03/26/18 09:13 Home Medications Medication Instructions Recorded Confirmed Type atenolol 100 mg PO DAILY 03/26/18 03/26/18 History azathioprine 50 mg PO TID 03/26/18 03/26/18 History dicyclomine 10 mg PO QID 03/26/18 03/26/18 History lisinopril 10 mg PO DAILY 03/26/18 03/26/18 History mesalamine 800 mg PO TID 03/26/18 03/26/18 History simvastatin [Zocor] 20 mg PO QPM 03/26/18 03/26/18 History spironolactone 25 mg PO DAILY 03/26/18 03/26/18 History Exam Vital signs: Vital Signs 03/26/18 08:52 03/26/18 09:45 03/26/18 10:31 Temperature 98.1 F 98.0 F Pulse Rate 85 78 Respiratory Rate 20 17 16 Blood Pressure 156/88 H 120/83 Pulse Oximetry 97 99 03/26/18 12:17 Temperature 97.8 F Pulse Rate 74 Respiratory Rate 16 Blood Pressure 126/77 Pulse Oximetry 98 Intake & Output 03/25/18 03/26/18 03/26/18 18:59 06:59 18:59 Intake Total 1000 / 1000 Output Total 600 / 600 Balance 400 / 400 Weight 97.522 kg Intake: IV 1000 / 1000 NS Inj 1,000 ML @ Wide Open IV. 1000 / 1000 SIG BOLUS ONE Rx#:[id number] Output: Urine 600 / 600 Other: # Voids 2 - Constitutional no acute distress - Routine HEENT Exam Head: Present: normocephalic, atraumatic - Routine Respiratory Exam Absent: accessory muscle use - Routine Abdominal Exam Present: soft, normoactive bowel sounds, tenderness (mid lower abdominal tenderness ). Absent: distended - Routine Skin Exam Present: dry, warm - Routine Neurological Exam Present: alert, oriented X3 <Marcelle Vargas - Last Filed: 03/26/18 13:59> Vital signs: Vital Signs 03/26/18 08:52 03/26/18 09:45 03/26/18 10:31 Temperature 98.1 F 98.0 F Pulse Rate 85 78 Respiratory Rate 20 17 16 Blood Pressure 156/88 H 120/83 Pulse Oximetry 97 99 03/26/18 12:17 03/26/18 14:05 03/26/18 16:16 Temperature 97.8 F Pulse Rate 74 65 Respiratory Rate 16 16 16 Blood Pressure 126/77 138/62 Pulse Oximetry 98 03/26/18 20:00 Temperature 99.7 F H Pulse Rate 78 Respiratory Rate 18 Blood Pressure 130/71 Pulse Oximetry 98 Intake & Output 03/26/18 03/26/18 03/27/18 06:59 18:59 06:59 Intake Total 1000 / 1000 Output Total 600 / 600 Balance 400 / 400 Weight 97.52 kg Intake: IV 1000 / 1000 NS Inj 1,000 ML @ Wide Open IV. 1000 / 1000 SIG BOLUS ONE Rx#:[id number] Output: Urine 600 / 600 Other: # Voids 2 Weight On Admission 97.52 kg <Cole Ricardo - Last Filed: 03/26/18 21:50> Results - Labs CBC & Chem 7: 03/26/18 09:49 03/26/18 09:49 Labs: Laboratory Results - last 24 hr 03/26/18 03/26/18 03/26/18 09:49 09:49 09:49 WBC 15.0 H RBC 4.47 Hgb 12.8 Hct 38.6 MCV 86.5 MCH 28.6 MCHC 33.0 RDW 16.3 Plt Count 466 H MPV 7.4 Neut % (Auto) 87.8 H Lymph % (Auto) 5.1 L [place] % (Auto) 6.6 Eos % (Auto) 0.3 Baso % (Auto) 0.2 Neut # (Auto) 13.2 H Lymph # (Auto) 0.8 L [place] # (Auto) 1.0 H Eos # (Auto) 0.0 Baso # (Auto) 0.0 WBC Differential . Differential Comment Auto diff final Sodium 136 Potassium 3.6 Chloride 100 Carbon Dioxide 27.4 Anion Gap 9 BUN 13 Creatinine 0.70 Estimated GFR 86 L Random Glucose 123 H Lactic Acid 1.3 Calcium 9.3 Total Bilirubin 0.5 AST 13 L ALT 17 Alkaline Phosphatase 86 Total Protein 8.4 H Albumin 3.1 L Lipase 97 Urine Color Urine Clarity Urine pH Ur Specific [place] Urine Protein Urine Glucose (UA) Urine Ketones Urine Occult Blood Urine Nitrate Urine Bilirubin Urine Urobilinogen Ur Leukocyte Esterase Urine RBC Urine WBC Ur Squamous Epith Cells Urine Bacteria Urine Mucus Micro UA Comment Urine Culture Comments 03/26/18 09:49 WBC RBC Hgb Hct MCV MCH MCHC RDW Plt Count MPV Neut % (Auto) Lymph % (Auto) [place] % (Auto) Eos % (Auto) Baso % (Auto) Neut # (Auto) Lymph # (Auto) [place] # (Auto) Eos # (Auto) Baso # (Auto) WBC Differential Differential Comment Sodium Potassium Chloride Carbon Dioxide Anion Gap BUN Creatinine Estimated GFR Random Glucose Lactic Acid Calcium Total Bilirubin AST ALT Alkaline Phosphatase Total Protein Albumin Lipase Urine Color Cecy Urine Clarity Cloudy H Urine pH 5.0 Ur Specific [place] 1.023 Urine Protein 30 H Urine Glucose (UA) Negative Urine Ketones 20 Urine Occult Blood Negative Urine Nitrate Positive H Urine Bilirubin Negative Urine Urobilinogen Less than 2 Ur Leukocyte Esterase Moderate H Urine RBC 2 Urine WBC 47 H Ur Squamous Epith Cells 10 Urine Bacteria Moderate H Urine Mucus Few H Micro UA Comment Culture indicated Urine Culture Comments Culture indicated - Imaging Impressions Abdomen/Pelvis CT 03/26/18 09:30 CONCLUSION: 1. Patient's symptoms are probably due to some hydronephrosis and hydroureter of the right kidney. 2. At least partial renal obstruction is due to the inflammatory process identified in the deep pelvis. There is thickening of the distal descending and most of the sigmoid colon with pericolonic stranding. The right ureter passes through this inflammatory process. 3. Findings in the sigmoid are nonspecific. This could represent Crohn's disease as reported in the clinical history. However, other entities include an inflammatory carcinoma or possibly diverticulitis although no discrete diverticula are identified. Endoscopy may be useful for further evaluation. 4. Stable, benign-appearing 1 cm cyst laterally in the midpole of the left kidney. <Marcelle Vargas - Last Filed: 03/26/18 13:59> - Labs CBC & Chem 7: 03/26/18 09:49 03/26/18 09:49 Labs: Laboratory Results - last 24 hr 03/26/18 03/26/18 03/26/18 09:49 09:49 09:49 WBC 15.0 H RBC 4.47 Hgb 12.8 Hct 38.6 MCV 86.5 MCH 28.6 MCHC 33.0 RDW 16.3 Plt Count 466 H MPV 7.4 Neut % (Auto) 87.8 H Lymph % (Auto) 5.1 L [place] % (Auto) 6.6 Eos % (Auto) 0.3 Baso % (Auto) 0.2 Neut # (Auto) 13.2 H Lymph # (Auto) 0.8 L [place] # (Auto) 1.0 H Eos # (Auto) 0.0 Baso # (Auto) 0.0 WBC Differential . Differential Comment Auto diff final Sodium 136 Potassium 3.6 Chloride 100 Carbon Dioxide 27.4 Anion Gap 9 BUN 13 Creatinine 0.70 Estimated GFR 86 L Random Glucose 123 H Lactic Acid 1.3 Calcium 9.3 Total Bilirubin 0.5 AST 13 L ALT 17 Alkaline Phosphatase 86 Total Protein 8.4 H Albumin 3.1 L Lipase 97 Urine Color Urine Clarity Urine pH Ur Specific [place] Urine Protein Urine Glucose (UA) Urine Ketones Urine Occult Blood Urine Nitrate Urine Bilirubin Urine Urobilinogen Ur Leukocyte Esterase Urine RBC Urine WBC Ur Squamous Epith Cells Urine Bacteria Urine Mucus Micro UA Comment Urine Culture Comments 03/26/18 09:49 WBC RBC Hgb Hct MCV MCH MCHC RDW Plt Count MPV Neut % (Auto) Lymph % (Auto) [place] % (Auto) Eos % (Auto) Baso % (Auto) Neut # (Auto) Lymph # (Auto) [place] # (Auto) Eos # (Auto) Baso # (Auto) WBC Differential Differential Comment Sodium Potassium Chloride Carbon Dioxide Anion Gap BUN Creatinine Estimated GFR Random Glucose Lactic Acid Calcium Total Bilirubin AST ALT Alkaline Phosphatase Total Protein Albumin Lipase Urine Color Cecy Urine Clarity Cloudy H Urine pH 5.0 Ur Specific [place] 1.023 Urine Protein 30 H Urine Glucose (UA) Negative Urine Ketones 20 Urine Occult Blood Negative Urine Nitrate Positive H Urine Bilirubin Negative Urine Urobilinogen Less than 2 Ur Leukocyte Esterase Moderate H Urine RBC 2 Urine WBC 47 H Ur Squamous Epith Cells 10 Urine Bacteria Moderate H Urine Mucus Few H Micro UA Comment Culture indicated Urine Culture Comments Culture indicated - Imaging Impressions Abdomen/Pelvis CT 03/26/18 09:30 CONCLUSION: 1. Patient's symptoms are probably due to some hydronephrosis and hydroureter of the right kidney. 2. At least partial renal obstruction is due to the inflammatory process identified in the deep pelvis. There is thickening of the distal descending and most of the sigmoid colon with pericolonic stranding. The right ureter passes through this inflammatory process. 3. Findings in the sigmoid are nonspecific. This could represent Crohn's disease as reported in the clinical history. However, other entities include an inflammatory carcinoma or possibly diverticulitis although no discrete diverticula are identified. Endoscopy may be useful for further evaluation. 4. Stable, benign-appearing 1 cm cyst laterally in the midpole of the left kidney. <Cole Ricardo - Last Filed: 03/26/18 21:50> Assessment and Plan - Plan Assessment: - Crohns disease- presented with abdominal pain Complaining of RLQ pain that began ten days ago, was intermittent, constant for the past 3 days, described as sharp and aching, radiates to midline. Some improvement after BMs. Reports more mucous in her stool, denies hematochezia and melena. Reports nausea, denies emesis. States weight loss has been intentional, she is currently tried the Keto diet. CT abdomen and pelvis W IV contrast (03/26) Hydronephrosis and hydroureter of the right kidney. At least partial renal obstruction is due to the inflammatory process identified in the deep pelvis. There is thickening of the distal descending and most of the sigmoid colon with pericolonic stranding. The right ureter passes through this inflammatory process. Findings in the sigmoid are nonspecific. Stable, benign-appearing 1 cm cyst laterally in the midpole of the left kidney. Pt being managed outpatient by Dr. Weems- on Azathioprine and Mesalamine- was previously advised to be started on Remicade but copay was too high and pt could no afford. Last colonoscopy Sep 08 --> Normal terminal ileum, abnormal mucosa in the cecum, sigmoid, ascending, transverse, and descending colon. Mucosa was erythematous, friable and had granularity, loss of vascularity, scarring, deep ulcers, vascular ectasia, erosions and pseudopolyps. Colonic mucosa appeared normal in the rectum. Pathology (terminal ileum) small intestinal mucosa with enteritis mild activity, preserved villous architecture, prominent lymphoid follicles present, no granulomas seen (right colon) colonic mucosa with active colitis, cryptitis and erosive changes (transverse colon) colonic mucosa with active colitis, cryptitis and erosive changes (left colon polyp) benign polypoid colonic mucosa fold with lymphoid aggregate present (rectum) colonic/ rectal mucosa with no significant pathologic changes Denies family history of colon cancer. - Nausea with no emesis- likely multifactorial given renal obstruction EGD (aug 25, 2017) Reflux esophagitis in the distal esophagus, acute gastritis in the gastric antrum, duodenal mucosa showed no abnormalities in the 2nd part of the duodenum. - Renal obstruction/hydronephrosis- per imaging above Pt repots history of KELI when she was first diagnosed with Crohns in 2009, states renal function improved to normal and she has not been following up with nephrology Plan: EGD and colonoscopy tomorrow Obtain consent Clear liquids today Golytely prep NPO after MN Hold Lovenox tomorrow Stool studies Cipro and Flagyl per attending Start Methylprednisolone Supportive [id number] PRN and pain control Further recommendations to follow Pt has been seen and examined by myself and Dr. Ricardo and this note is written on his behalf <Marcelle Vargas - Last Filed: 03/26/18 13:59> - Plan Patient was seen and examined, agree with above note, unclear etiology of her symptoms, patient is not very good historian, we will plan on doing upper endoscopy and colonoscopy for evaluation of her GI tract and see if she is in flareup from her Crohn disease <Cole Ricardo - Last Filed: 03/26/18 21:50>
--- NOTE | 2018-03-26 14:25 | P.CONURO ---
History of Present Illness Service: Urology Consult date: 03/26/18 Requesting Physician: Jazmin Freire Reason for Consult: Mild right hydro Primary Care Provider: Laron Jacobs MD Chief Complaint: Abdominal pain nausea History of Present Illness: 57-year-old white female with a history of Crohn's disease, hypertension, hyperlipidemia presents to the emergency room with a 10 day history of worsening symptoms of RLQ abdominal pain associated with nausea and intermittent fevers and chills. She has not had any active vomiting but had poor appetite during the past week. She states there is no significant changes in her bowel movement but does describe it as loose and nonbloody. She states that she is currently under care of Dr. Weems for Crohn's dx. She has not had any changes in medication or dosages recently. She denies any recent sick contacts. Urology consulted for mild hydro on CT CT scan was done and showed mild right hydro due to the inflammatory process identified in the deep pelvis. There is thickening of the distal descending and most of the sigmoid colon with pericolonic stranding. The right ureter passes through this inflammatory process. This could represent Crohn's disease as reported in the clinical history. However, other entities include an inflammatory carcinoma or possibly diverticulitis although no discrete diverticula are identified. Endoscopy may be useful for further evaluation. She denies any symptoms, no voiding problems, no dysuria, no hematuria. On/ off has mild to mod right flank/back pain Her VS are stable, Cr is normal Review of Systems All other systems reviewed negative except as stated in HPI PMFSH - History History Provided By: Patient - Medical History Medical History: Medical History (Last Reviewed 03/26/18 @ 12:52 by Jazmin Freire MD) Crohn's disease HBP (high blood pressure) High cholesterol - Surgical History Surgical History: Surgical History (Last Updated 03/26/18 @ 12:52 by Jazmin Freire MD) History of hip surgery - Family History Family History: Family History (Last Updated 03/26/18 @ 12:53 by Jazmin Frerie MD) Mother Family history of breast cancer Parkinson disease Father COPD (chronic obstructive pulmonary disease) - Tobacco History Second Hand Smoke Exposure: No Smoking Status: Never smoker - Alcohol History How Often Do You Have a Drink Containing Alcohol: 2 to 4 times a month - Substance Use History Substance History: No History of Abuse - Travel History Recent Travel in the [place] Within the Last 8 Weeks: No Recent Travel Out of the Country Within the Last 8 Weeks: No - Immunization History Tetanus Immunization: >5 Years Hx Influenza Vaccine This Season: No Medications and Allergies Active Medications: Active Medications Acetaminophen (Tylenol) 650 mg PO Q6H PRN PRN Reason: PAIN SCALE 1 TO 2 Hydrocodone Bitart/Acetaminophen ([place] 5/325) 1 tab PO Q4H PRN PRN Reason: PAIN SCALE 3 TO 5 Hydrocodone Bitart/Acetaminophen ([place] 7.5/325) 1 tab PO Q4H PRN PRN Reason: PAIN SCALE 6 TO 10 Last Admin: 03/26/18 13:08 Dose: 1 tab Atenolol (Tenormin) 100 mg PO DAILY [facility] Azathioprine (Imuran) 50 mg PO TID [facility] Dicyclomine HCl (Bentyl) 10 mg PO QID [facility] Enalaprilat (Vasotec Inj) 1.25 mg IV.PUSH Q6H PRN PRN Reason: SEE LABEL COMMENTS Enoxaparin Sodium (Lovenox Inj) 40 mg SQ Q24H [facility] Last Admin: 03/26/18 13:03 Dose: 40 mg Ciprofloxacin/Dextrose (Cipro 400 Mg/200 Ml Inj) 400 mg in 200 mls @ 200 mls/ hr IV.SIG Q12H [facility] Metronidazole/Sodium Chloride (Flagyl 500 Mg Inj) 100 mls @ 100 mls/hr IV.SIG Q8H [facility] Potassium Chloride/Dextrose/Sod Cl (D5w/1/2ns + Kcl 20 Meq Inj) 1,000 mls @ 100 mls/hr IV.CONT .Q10H [facility] Last Admin: 03/26/18 12:58 Dose: 100 mls/hr Lisinopril (Prinivil) 10 mg PO DAILY [facility] Morphine Sulfate (Morphine Inj) 4 mg IV.PUSH Q3H PRN PRN Reason: PAIN 6-10;IF UNABLE TO TAKE PO Naloxone HCl (Narcan Inj) 0.4 mg IV.PUSH UNSCH PRN PRN Reason: SEE LABEL COMMENTS Non-Formulary Medication (Mesalamine [Mesalamine]) 800 mg PO TID [facility] Non-Formulary Medication (Simvastatin [Zocor]) 20 mg PO QPM [facility] Ondansetron HCl (Zofran Inj) 4 mg IV.PUSH Q6H PRN PRN Reason: NAUSEA OR VOMITING Spironolactone (Aldactone) 25 mg PO DAILY [facility] Zolpidem Tartrate (Ambien) 5 mg PO HS PRN PRN Reason: INSOMNIA Allergies Allergy/AdvReac Type Severity Reaction Status Date / Time No Known Allergies Allergy Verified 03/26/18 09:13 Home Medications Medication Instructions Recorded Confirmed Type atenolol 100 mg PO DAILY 03/26/18 03/26/18 History azathioprine 50 mg PO TID 03/26/18 03/26/18 History dicyclomine 10 mg PO QID 03/26/18 03/26/18 History lisinopril 10 mg PO DAILY 03/26/18 03/26/18 History mesalamine 800 mg PO TID 03/26/18 03/26/18 History simvastatin [Zocor] 20 mg PO QPM 03/26/18 03/26/18 History spironolactone 25 mg PO DAILY 03/26/18 03/26/18 History Physical Exam Vital Signs - 24 hr 03/26/18 08:52 03/26/18 09:45 03/26/18 10:31 Temperature 98.1 F 98.0 F Pulse Rate 85 78 Respiratory Rate 20 17 16 Blood Pressure 156/88 H 120/83 Pulse Oximetry 97 99 03/26/18 12:17 Temperature 97.8 F Pulse Rate 74 Respiratory Rate 16 Blood Pressure 126/77 Pulse Oximetry 98 Physical Exam: GENERAL: This is a well-nourished, well-developed patient, in no apparent distress. HEAD: Atraumatic. Normocephalic. CARDIOVASCULAR: Regular rate and rhythm without murmurs, gallops, or rubs. RESPIRATORY: Clear to auscultation. Breath sounds equal bilaterally. No wheezes , rales, or rhonchi. GASTROINTESTINAL: Abd soft +RLQ tenderness GENITOURINARY: No CVAT NEUROLOGICAL: Awake and alert. Laboratory Results - last 24 hr 03/26/18 03/26/18 03/26/18 09:49 09:49 09:49 WBC 15.0 H RBC 4.47 Hgb 12.8 Hct 38.6 MCV 86.5 MCH 28.6 MCHC 33.0 RDW 16.3 Plt Count 466 H MPV 7.4 Neut % (Auto) 87.8 H Lymph % (Auto) 5.1 L [place] % (Auto) 6.6 Eos % (Auto) 0.3 Baso % (Auto) 0.2 Neut # (Auto) 13.2 H Lymph # (Auto) 0.8 L [place] # (Auto) 1.0 H Eos # (Auto) 0.0 Baso # (Auto) 0.0 WBC Differential . Differential Comment Auto diff final Sodium 136 Potassium 3.6 Chloride 100 Carbon Dioxide 27.4 Anion Gap 9 BUN 13 Creatinine 0.70 Estimated GFR 86 L Random Glucose 123 H Lactic Acid 1.3 Calcium 9.3 Total Bilirubin 0.5 AST 13 L ALT 17 Alkaline Phosphatase 86 Total Protein 8.4 H Albumin 3.1 L Lipase 97 Urine Color Urine Clarity Urine pH Ur Specific [place] Urine Protein Urine Glucose (UA) Urine Ketones Urine Occult Blood Urine Nitrate Urine Bilirubin Urine Urobilinogen Ur Leukocyte Esterase Urine RBC Urine WBC Ur Squamous Epith Cells Urine Bacteria Urine Mucus Micro UA Comment Urine Culture Comments 03/26/18 09:49 WBC RBC Hgb Hct MCV MCH MCHC RDW Plt Count MPV Neut % (Auto) Lymph % (Auto) [place] % (Auto) Eos % (Auto) Baso % (Auto) Neut # (Auto) Lymph # (Auto) [place] # (Auto) Eos # (Auto) Baso # (Auto) WBC Differential Differential Comment Sodium Potassium Chloride Carbon Dioxide Anion Gap BUN Creatinine Estimated GFR Random Glucose Lactic Acid Calcium Total Bilirubin AST ALT Alkaline Phosphatase Total Protein Albumin Lipase Urine Color Cecy Urine Clarity Cloudy H Urine pH 5.0 Ur Specific [place] 1.023 Urine Protein 30 H Urine Glucose (UA) Negative Urine Ketones 20 Urine Occult Blood Negative Urine Nitrate Positive H Urine Bilirubin Negative Urine Urobilinogen Less than 2 Ur Leukocyte Esterase Moderate H Urine RBC 2 Urine WBC 47 H Ur Squamous Epith Cells 10 Urine Bacteria Moderate H Urine Mucus Few H Micro UA Comment Culture indicated Urine Culture Comments Culture indicated Result Diagrams: 03/26/18 09:49 03/26/18 09:49 Imaging: ITS Impressions Abdomen/Pelvis CT 03/26/18 09:30 CONCLUSION: 1. Patient's symptoms are probably due to some hydronephrosis and hydroureter of the right kidney. 2. At least partial renal obstruction is due to the inflammatory process identified in the deep pelvis. There is thickening of the distal descending and most of the sigmoid colon with pericolonic stranding. The right ureter passes through this inflammatory process. 3. Findings in the sigmoid are nonspecific. This could represent Crohn's disease as reported in the clinical history. However, other entities include an inflammatory carcinoma or possibly diverticulitis although no discrete diverticula are identified. Endoscopy may be useful for further evaluation. 4. Stable, benign-appearing 1 cm cyst laterally in the midpole of the left kidney. Assessment and Plan - Plan 57 y.o F with Crohn's dx related inflammation at the right side of pelvis and abd causing mild hydro - No acute intervention needed - Continue care as per primary team and as per GI recommendations - Once primary GI issue will improve, and inflammation subsides, her hydro will get better as well. Discussed Condition With: Discussed with Dr Mateus UMANZOR attending who agrees with this plan
[2018-03-26] MEDS ORDERED: PEG 3350/E-Lyte Soln 4000 ML Bottle PO ONE (16:00)
[2018-03-26] MEDS ORDERED: Dicyclomine 10 MG Capsule PO SCH (18:00)
[2018-03-26] MEDS ORDERED: azaTHIOprine 50 MG Tablet PO SCH (18:00)
[2018-03-26] MEDS ORDERED: Mesalamine 800 MG Tablet DR PO SCH (18:00)
[2018-03-26] MEDS: Mesalamine 800 MG Tablet DR PO SCH (21:14)
[2018-03-26] MEDS: azaTHIOprine 50 MG Tablet PO SCH (21:15)
[2018-03-26] MEDS: Dicyclomine 10 MG Capsule PO SCH (21:16)
[2018-03-26] MEDS: MethylPREDNISolone Sod Succinate Inj 40 MG/ML Vial IV.PUSH SCH (21:18)
[2018-03-26] MEDS: Morphine Inj 4 MG/ML Vial IV.PUSH PRN (21:33)
[2018-03-26] MEDS: Ciprofloxacin 400 MG/200 ML 400 MG/200 ML PIGGYBACK IV.SIG SCH (23:50)
[2018-03-27] MEDS: MethylPREDNISolone Sod Succinate Inj 40 MG/ML Vial IV.PUSH SCH ×3 (06:13→21:12)
[2018-03-27] MEDS: KCL 20 mEq/D5W/NaCl 0.45% Inj 1,000 ML IV.CONT SCH ×3 (08:07→20:19)
[2018-03-27] MEDS: azaTHIOprine 50 MG Tablet PO SCH ×3 (08:36→18:19)
[2018-03-27] MEDS: Dicyclomine 10 MG Capsule PO SCH ×4 (08:37→21:10)
[2018-03-27] MEDS: Mesalamine 800 MG Tablet DR PO SCH ×3 (08:37→18:19)
[2018-03-27] MEDS: Atenolol 100 MG Tablet PO SCH (09:36)
[2018-03-27] MEDS: Spironolactone 25 MG Tablet PO SCH (09:36)
[2018-03-27] MEDS: Lisinopril 10 MG Tablet PO SCH (09:36)
[2018-03-27 10:50] LABS: Hematocrit 35.2 % (35.0-46.0); Hemoglobin 11.7 gm/dL (11.6-15.3); Mean Corpuscular HGB Conc 33.2 % (32.0-36.0); Mean Corpuscular Hemoglobin 28.5 pg (27.0-34.0); Mean Corpuscular Volume 85.9 fL (80.0-100.0); Mean Platelet Volume 7.7 fL (7.0-11.0); Platelet Count 442 th/mm3 (150-450); Red Cell Distribution Width 16.3 % (11.6-17.2)
[2018-03-27 10:51] LABS: Baso % (Auto) 0.1 % (0.0-2.0); Lymph # (Auto) 0.6 th/mm3 (1.0-4.8); Lymph % (Auto) 6.9 % (9.0-44.0); Mono # (Auto) 0.4 th/mm3 (0.0-0.9); Mono % (Auto) 4.1 % (0.0-8.0); Neut % (Auto) 88.9 % (16.0-70.0)
--- NOTE | 2018-03-27 11:05 | P.PNFP ---
Subjective Interval history: Patient seen and examined this morning. She is feeling crappy today. She states that she is still having some right-sided abdominal pain, 6 10. She is due to go for her colonoscopy and EGD around 1130. She has completed her bowel prep and is feeling some nausea, but no vomiting. Otherwise , no fevers or chills, no chest pain, no shortness of breath. <Sabina Marin Darinel - 03/27/18 11:04> Results - Labs Result diagrams: 03/27/18 09:13 03/27/18 09:13 <Laron Jacobs - 03/27/18 16:41> Abnormal lab results 03/26/18 03/27/18 03/27/18 Range/Units 09:49 09:13 09:13 Neut % (Auto) 88.9 H (16.0-70.0) % Lymph % (Auto) 6.9 L (9.0-44.0) % Neut # (Auto) 8.0 H (1.8-7.7) th/mm3 Lymph # (Auto) 0.6 L (1.0-4.8) th/mm3 BUN 6 L (7-18) mg/dL Random Glucose 171 H (74-106) mg/dL Urine Clarity Cloudy H (Clear) Urine Protein 30 H (Neg-Trace) mg/dL Urine Nitrate Positive H (Negative) Ur Leukocyte Esterase Moderate H (Negative) Urine WBC 47 H (0-5) /hpf Urine Bacteria Moderate H (None) /hpf Urine Mucus Few H (Occasional) /lpf Short CBC 03/27/18 Range/Units 09:13 WBC 9.0 (4.0-11.0) th/mm3 Hgb 11.7 (11.6-15.3) gm/dL Hct 35.2 (35.0-46.0) % Plt Count 442 (150-450) th/mm3 BMP 03/27/18 09:13 Sodium 139 Potassium 4.1 Chloride 102 Carbon Dioxide 27.5 BUN 6 L Creatinine 0.50 Calcium 9.0 Urine 03/26/18 Range/Units 09:49 Urine Color Cecy (Yellw/Straw) Urine Clarity Cloudy H (Clear) Urine pH 5.0 (5.0-8.5) Ur Specific [place] 1.023 (1.002-1.035) Urine Protein 30 H (Neg-Trace) mg/dL Urine Glucose (UA) Negative (Negative) mg/dL <Laron Jacobs - 03/27/18 16:41> Abnormal lab results 03/26/18 Range/Units 09:49 Total Protein 8.4 H (6.4-8.2) g/dL Liver Function 03/26/18 Range/Units 09:49 Total Bilirubin 0.5 (0.2-1.0) mg/dL ALT 17 (10-53) U/L Alkaline Phosphatase 86 (45-117) U/L <Sabina Marin - 03/27/18 11:04> - Imaging Impressions Abdomen/Pelvis CT 03/26/18 09:30 CONCLUSION: 1. Patient's symptoms are probably due to some hydronephrosis and hydroureter of the right kidney. 2. At least partial renal obstruction is due to the inflammatory process identified in the deep pelvis. There is thickening of the distal descending and most of the sigmoid colon with pericolonic stranding. The right ureter passes through this inflammatory process. 3. Findings in the sigmoid are nonspecific. This could represent Crohn's disease as reported in the clinical history. However, other entities include an inflammatory carcinoma or possibly diverticulitis although no discrete diverticula are identified. Endoscopy may be useful for further evaluation. 4. Stable, benign-appearing 1 cm cyst laterally in the midpole of the left kidney. <Sabina Marin - 03/27/18 11:04> Physical Exam Vital signs: Vital Signs 03/26/18 20:00 03/27/18 00:00 03/27/18 04:00 Temperature 99.7 F H 99.1 F 97.6 F Pulse Rate 78 75 63 Respiratory Rate 18 18 18 Blood Pressure 130/71 115/57 L 120/65 Pulse Oximetry 98 95 96 03/27/18 08:15 03/27/18 12:11 03/27/18 13:10 Temperature 98.2 F 97.6 F 98.0 F Pulse Rate 62 60 57 L Respiratory Rate 20 20 22 Blood Pressure 138/73 178/78 H Pulse Oximetry 96 100 95 03/27/18 16:00 Temperature 98.6 F Pulse Rate 55 L Respiratory Rate 16 Blood Pressure Pulse Oximetry 97 Intake & Output 03/26/18 03/27/18 03/27/18 18:59 06:59 18:59 Intake Total 1000 / 1000 300 / 300 1400 / 1400 Output Total 600 / 600 Balance 400 / 400 300 / 300 1400 / 1400 Weight 97.52 kg Intake: IV 1000 / 1000 300 / 300 1000 / 1000 D5W/1/2NS + KCL 20 mEq Inj 1, 0 / 0 1000 / 1000 000 ML @ 100 mls/hr IV.CONT . Q10H [facility] Rx#:[id number] Cipro 400 MG/200 ML Inj 400 mg 200 / 200 In 200 ml @ 200 mls/hr IV.SIG Q12H [facility] Rx#:[id number] NS Inj 1,000 ML @ Wide Open IV. 1000 / 1000 SIG BOLUS ONE Rx#:[id number] Flagyl 500 MG Inj 100 ML @ 100 100 / 100 mls/hr IV.SIG Q8H [facility] Rx#: [id number] Anesthesia Amount 400 / 400 Output: Urine 600 / 600 Other: # Voids 2 Date of Last Bowel Movement 03/27/18 Weight On Admission 97.52 kg <Laron Jacobs - 03/27/18 16:41> Vital Signs 03/26/18 10:31 03/26/18 12:17 03/26/18 14:05 Temperature 98.0 F 97.8 F Pulse Rate 78 74 Respiratory Rate 16 16 16 Blood Pressure 120/83 126/77 Pulse Oximetry 99 98 03/26/18 16:16 03/26/18 20:00 03/27/18 00:00 Temperature 99.7 F H 99.1 F Pulse Rate 65 78 75 Respiratory Rate 16 18 18 Blood Pressure 138/62 130/71 115/57 L Pulse Oximetry 98 95 03/27/18 04:00 Temperature 97.6 F Pulse Rate 63 Respiratory Rate 18 Blood Pressure 120/65 Pulse Oximetry 96 Intake & Output 03/26/18 03/27/1818 18:59 06:59 18:59 Intake Total 1000 / 1000 300 / 300 1000 / 1000 Output Total 600 / 600 Balance 400 / 400 300 / 300 1000 / 1000 Weight 97.52 kg Intake: IV 1000 / 1000 300 / 300 1000 / 1000 D5W/1/2NS + KCL 20 mEq Inj 1, 0 / 0 1000 / 1000 000 ML @ 100 mls/hr IV.CONT . Q10H [facility] Rx#:[id number] Cipro 400 MG/200 ML Inj 400 mg 200 / 200 In 200 ml @ 200 mls/hr IV.SIG Q12H [facility] Rx#:[id number] NS Inj 1,000 ML @ Wide Open IV. 1000 / 1000 SIG BOLUS ONE Rx#:[id number] Flagyl 500 MG Inj 100 ML @ 100 100 / 100 mls/hr IV.SIG Q8H [facility] Rx#: [id number] Output: Urine 600 / 600 Other: # Voids 2 Weight On Admission 97.52 kg <Sabina Marin - 03/27/18 11:04> Narrative: GENERAL: obese white female laying in bed, in no acute distress SKIN: Warm and dry. HEAD: Atraumatic. Normocephalic. EYES: No scleral icterus. No injection or drainage. ENT: No nasal bleeding or discharge. NECK: Trachea midline. No JVD. CARDIOVASCULAR: Regular rate and rhythm. RESPIRATORY: No accessory muscle use. Clear to auscultation. Breath sounds equal bilaterally. GASTROINTESTINAL: Abdomen soft, tenderness in RLQ, nondistended. Hepatic and splenic margins not palpable. MUSCULOSKELETAL: Extremities without clubbing, cyanosis, or edema. No obvious deformities. NEUROLOGICAL: Awake and alert. No obvious cranial nerve deficits. Motor grossly within normal limits. Normal speech. PSYCHIATRIC: Appropriate mood and affect; insight and judgment normal. <Sabina Marin Darinel - 03/27/18 11:04> Assessment and Plan - Assessment (1) Colitis Code(s): K52.9 - Noninfective gastroenteritis and colitis, unspecified Status : Acute (2) Hydronephrosis Code(s): N13.30 - Unspecified hydronephrosis Status: Acute (3) UTI (urinary tract infection) Code(s): N39.0 - Urinary tract infection, site not specified Status: Acute (4) Crohns disease Code(s): K50.90 - Crohn's disease, unspecified, without complications Status: Chronic (5) Hypertension Code(s): I10 - Essential (primary) hypertension Status: Chronic (6) Hyperlipidemia Code(s): E78.5 - Hyperlipidemia, unspecified Status: Chronic (7) Nutrition, metabolism, and development symptoms Code(s): R63.8 - Other symptoms and signs concerning food and fluid intake Status: Acute (8) DVT prophylaxis Status: Acute <Laron Jacobs - 03/27/18 16:41> (1) Colitis Code(s): K52.9 - Noninfective gastroenteritis and colitis, unspecified Status : Acute Plan: RLQ pain of 10 days duration, may be due to a Crohn's disease flare. CT abdomen and pelvis W IV contrast (03/26) Hydronephrosis and hydroureter of the right kidney. At least partial renal obstruction is due to the inflammatory process identified in the deep pelvis. There is thickening of the distal descending and most of the sigmoid colon with pericolonic stranding. Stool studies: -Enteric pathogen pending -Cryptosporidium antigen pending -Giardia antigen pending GI consulted, appreciate recommendations -EGD and colonoscopy today -Hold Lovenox -Stool studies -Start Ciprofloxacin 400 mg IV every 12 hours and metronidazole 500 mg IV every 8 hours -Start methylprednisolone 40 mg IV every 8 hours -Supportive [id number] PRN and pain control On [place] p.o. every 4 hours as needed per pain scale with morphine 4 mg IV as needed for breakthrough (2) Hydronephrosis Code(s): N13.30 - Unspecified hydronephrosis Status: Acute Plan: CT abdomen/pelvis on 03/26 revealed: Benign-appearing 1.1 cm cyst laterally in the midpole of the left kidney. Mild hydronephrosis and hydroureter of the right kidney appears to be due to partial distal ureteric obstruction as it traverses through the inflammatory process adjacent to the sigmoid in the deep pelvis. Urology consulted appreciate recommendations - No acute intervention needed - Once primary GI issue will improve, and inflammation subsides, hydronephrosis will improve. (3) UTI (urinary tract infection) Code(s): N39.0 - Urinary tract infection, site not specified Status: Acute Plan: Patient denied any symptoms of dysuria, urinary frequency, urgency, nor hematuria or any unusual vaginal discharge on admission. UA shows positive nitrates, moderate glucose esterase, 47 WBCs, moderate bacteria. Also had 10 squamous epithelial cells, may be contamination. Urine culture pending Patient currently on ciprofloxacin IV for her colitis, this will simultaneously treat UTI as well. (4) Crohns disease Code(s): K50.90 - Crohn's disease, unspecified, without complications Status: Chronic Plan: followed outpatient by Dr. Weems Continue at home medications -Mesalamine 100 mg p.o. 3 times daily -Azathioprine 50mg po TID -Dicyclomine 10 mg p.o. 4 times daily (5) Hypertension Code(s): I10 - Essential (primary) hypertension Status: Chronic Plan: Continue at home medications -Atenolol 100 mg p.o. daily -Lisinopril 10 mg p.o. daily -Spironolactone 25 mg p.o. daily As needed Vasotec 1.25 mg IV for BP >180/100 (6) Hyperlipidemia Code(s): E78.5 - Hyperlipidemia, unspecified Status: Chronic Plan: Continue at home pravastatin 40 mg p.o. daily (7) Nutrition, metabolism, and development symptoms Code(s): R63.8 - Other symptoms and signs concerning food and fluid intake Status: Acute Plan: Fluids: KCl 20 mEq/D5W/NaCL 0.45% @100 mls/hr Electrolytes: monitor and replete as needed Nutrition: NPO (8) DVT prophylaxis Status: Acute Plan: Lovenox 40 mg SQ daily, held for procedures today <Sabina Marin 03/27/18 10:24> - Assessment and Plan 87-year-old white female with past medical history of Crohn's disease presenting with right lower quadrant abdominal pain of 10 days duration. May be due to a Crohn's flare. GI on board. <Sabina Marin 03/27/18 11:04> Discussed Condition With: Dr. Jacobs, Dr. Delcid <Sabina Marin 03/27/18 11:04> Discharge Planning: pending clinical course <Sabina Marin 03/27/18 11:04> - Attending Attestation Patient case discussed with resident physicians I have read the above note and agree with the assessment/plan as discussed with me I was involved in all medical decision making for this patient Laron Jacobs MD <Laron Jacobs - 03/27/18 16:41> <Sabina Marin - Last Filed: 03/27/18 10:24> (3) UTI (urinary tract infection) Qualifiers: Urinary tract infection type: site unspecified Hematuria presence: without hematuria Qualified Code(s): N39.0 - Urinary tract infection, site not specified <Laron Jacobs - Last Filed: 03/27/18 16:41> (3) UTI (urinary tract infection) Qualifiers: Urinary tract infection type: site unspecified Hematuria presence: without hematuria Qualified Code(s): N39.0 - Urinary tract infection, site not specified <Sabina Marin - Last Filed: 03/27/18 10:24> (3) UTI (urinary tract infection) Qualifiers: Urinary tract infection type: site unspecified Hematuria presence: without hematuria Qualified Code(s): N39.0 - Urinary tract infection, site not specified <ArleneLaron - Last Filed: 03/27/18 16:41> (3) UTI (urinary tract infection) Qualifiers: Urinary tract infection type: site unspecified Hematuria presence: without hematuria Qualified Code(s): N39.0 - Urinary tract infection, site not specified
[2018-03-27 11:13] LABS: Anion Gap 10 meq/L (5-15); Blood Urea Nitrogen 6 mg/dL (7-18); Carbon Dioxide 27.5 meq/L (21.0-32.0); Chloride 102 meq/L (98-107); Glomerular Filtration Rate Greater Than 89 mL/min (>89); Glucose,Random 171 mg/dL (74-106); Potassium 4.1 meq/L (3.5-5.1); Sodium 139 meq/L (136-145)
[2018-03-27] MEDS ORDERED: Lidocaine PF 1% Inj 5 ML Syringe INFILTRATN ONE (12:00)
--- NOTE | 2018-03-27 12:13 | P.PCN ---
Procedure: THANK YOU FOR THE REFERRAL Indication; history of Crohn disease, nausea vomiting, severe abdominal pain Procedure Performed; upper endoscopy: With biopsy Colonoscopy: With snare polypectomy, multiple biopsies throughout the colon and from the ileocecal valve After informing the patient about procedure and possible complications consent was signed. history and physical were updated. Patient was taken to the procedure room and placed in position. Time out was completed. Adequate sedation was performed by anesthesia provider. Upper Endoscopy, the scope was placed in the mouth advanced under video guide to the second portion of the duodenum, then the scope was withdrawal to the stomach and retro-flexion was performed, the scope was withdrawal to the esophagus then out of the mouth without any immediate complication Colonoscopy, rectal exam was performed the scope was placed in the rectum advanced under video guide to the cecum which was identified by ileo-cecal valve and appendiceal orifice, then the scope withdrawal slowly with examination of the mucosa to the rectum and retro-flexion was performed, the scope was withdrawal without any immediate complication Findings; Terminal ileum there was no ulcerations or erythema to suggest Crohn disease that is active, took biopsy from the ileocecal valve, there was narrowing in the sigmoid with some nodularity biopsies were done, 2 polyps in the sigmoid removed by snare Rectum: Small Esophagus: Irregular Z line biopsy was done Stomach: Gastritis biopsy was done from the antrum Duodenum: Normal I had a discussion with the radiologist Dr. 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
--- NOTE | 2018-03-27 12:15 | P.PNGI ---
Subjective Interval history: Patient laying bed, still complaining of abdominal discomfort, mostly in the right side of the abdomen, no active bleeding Physical Exam Vital signs: Vital Signs 03/26/18 12:17 03/26/18 14:05 03/26/18 16:16 Temperature 97.8 F Pulse Rate 74 65 Respiratory Rate 16 16 16 Blood Pressure 126/77 138/62 Pulse Oximetry 98 03/26/18 20:00 03/27/18 00:00 03/27/18 04:00 Temperature 99.7 F H 99.1 F 97.6 F Pulse Rate 78 75 63 Respiratory Rate 18 18 18 Blood Pressure 130/71 115/57 L 120/65 Pulse Oximetry 98 95 96 03/27/18 08:15 Temperature 98.2 F Pulse Rate 62 Respiratory Rate 20 Blood Pressure 138/73 Pulse Oximetry 96 Intake & Output 03/26/18 03/27/18 03/27/18 18:59 06:59 18:59 Intake Total 1000 / 1000 300 / 300 1000 / 1000 Output Total 600 / 600 Balance 400 / 400 300 / 300 1000 / 1000 Weight 97.52 kg Intake: IV 1000 / 1000 300 / 300 1000 / 1000 D5W/1/2NS + KCL 20 mEq Inj 1, 0 / 0 1000 / 1000 000 ML @ 100 mls/hr IV.CONT . Q10H [facility] Rx#:[id number] Cipro 400 MG/200 ML Inj 400 mg 200 / 200 In 200 ml @ 200 mls/hr IV.SIG Q12H [facility] Rx#:[id number] NS Inj 1,000 ML @ Wide Open IV. 1000 / 1000 [facility] Rx#:[id number] Flagyl 500 MG Inj 100 ML @ 100 100 / 100 mls/hr IV.SIG Q8H [facility] Rx#: [id number] Output: Urine 600 / 600 Other: # Voids 2 Date of Last Bowel Movement 03/27/18 Weight On Admission 97.52 kg - Constitutional mild distress - Routine HEENT Exam Head: Present: normocephalic, atraumatic Eye: Present: EOMI, PERRL - Routine Neck Exam Present: supple, full ROM - Routine Respiratory Exam Present: CTA bilaterally - Routine Cardiovascular Exam Present: RRR, S1, S2 - Routine Abdominal Exam Present: soft, distended, guarding Comments: Pain on the right side of the abdomen Results - Labs CBC & Chem 7: 03/27/18 09:13 03/27/18 09:13 Laboratory Results - last 24 hr 03/26/18 03/27/18 03/27/18 20:00 09:13 09:13 WBC 9.0 RBC 4.10 Hgb 11.7 Hct 35.2 MCV 85.9 MCH 28.5 MCHC 33.2 RDW 16.3 Plt Count 442 MPV 7.7 Neut % (Auto) 88.9 H Lymph % (Auto) 6.9 L [place] % (Auto) 4.1 Eos % (Auto) 0.0 Baso % (Auto) 0.1 Neut # (Auto) 8.0 H Lymph # (Auto) 0.6 L [place] # (Auto) 0.4 Eos # (Auto) 0.0 Baso # (Auto) 0.0 WBC Differential . Differential Comment Auto diff final Sodium 139 Potassium 4.1 Chloride 102 Carbon Dioxide 27.5 Anion Gap 10 BUN 6 L Creatinine 0.50 Estimated GFR Greater than 89 Random Glucose 171 H Calcium 9.0 Stl C.difficile Tox PCR Negative St C. diff Tox Epid 027 Negative Assessment and Plan - Plan Patient was seen and examined, unclear etiology of her symptoms, upper endoscopy and colonoscopy was performed Findings; Terminal ileum there was no ulcerations or erythema to suggest Crohn disease that is active, took biopsy from the ileocecal valve, there was narrowing in the sigmoid with some nodularity biopsies were done, 2 polyps in the sigmoid removed by snare Rectum: Small Esophagus: Irregular Z line biopsy was done Stomach: Gastritis biopsy was done from the antrum Duodenum: Normal I had a discussion with the radiologist Dr. 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
[2018-03-27] MEDS: Ciprofloxacin 400 MG/200 ML 400 MG/200 ML PIGGYBACK IV.SIG SCH (12:58)
[2018-03-27] MEDS: Morphine Inj 4 MG/ML Vial IV.PUSH PRN ×2 (13:06→18:47)
--- NOTE | 2018-03-27 19:46 | MB ---
cc: Ricardo Fisher MD, John T MD Hemaidan, Ammar MD Kwong,Jazmin VALLEJO DATE: 03/27/2018 CHIEF COMPLAINT: Abdominal pain, history of Crohn disease, hydronephrosis. HISTORY: This patient has been seen by Dr. Luma Rodriguez in the past and had a fistulotomy done some 10 or 15 years ago according to the patient. I did not have that information when Dr. Ricardo consulted me. Dr. Rodriguez will follow her starting tomorrow. She came into the hospital with severe abdominal pain. She has a history of Crohn disease, which she says dates back at least about 10 years. She was originally seen by Dr. Keenan and then Dr. Jarvis and then Dr. Weems. Of note, she did have an anal fistula treated by Dr. Rodriguez some years ago as mentioned. Nevertheless, during that time with gastroenterology she has been diagnosed with Crohn disease. She said that once a year, she would have an episode of diarrhea. She has had multiple colonoscopies. I do not know how the diagnosis for Crohn disease was made whether Prometheus test was done or based on biopsy. Nevertheless, she has been on treatment for Crohn disease including azathioprine recently. She also is on mesalamine t.i.d. She has once a year flare. They put her on a lot of steroids and generally she improves. This time, she developed right-sided abdominal pain, pelvic pain and back pain and on CT scan, she was found to have hydronephrosis on the right from an inflammatory process deep in the pelvis. There was thickening of the distal descending and most of the sigmoid colon with pericolonic stranding. The right ureter passed through this inflammatory process. They said that the findings in the sigmoid are nonspecific. They could represent Crohn disease; however, inflammatory carcinoma or diverticulitis with no discrete diverticula could also be the cause. She underwent a colonoscopy with Dr. Ricardo today who felt that there was some mild constriction of the sigmoid area. It seemed to be external. There was really no mucosal lesions present, although some biopsies were done. He was able to reach the cecum and the terminal ileum, which were normal. She said that she really does not have chronic diarrhea or symptoms other than once a year when she has this flare-up. Past medical history, family history, social history and review of systems are essentially negative. PHYSICAL EXAMINATION: GENERAL: Well-developed, obese female, in no acute distress at this time, although she just completed a colonoscopy and has a lot of gas. SKIN: Warm and dry. HEENT: Extraocular muscles intact. NECK: Supple. ABDOMEN: Obese, moderately distended with mild diffuse tenderness, but my impression is that this is due to her gaseous distention. EXTREMITIES: Range of motion within normal limits. NEUROLOGIC: Grossly normal. RECTAL: Exam was not done as she just had a colonoscopy. IMPRESSION: 1. The patient with a history of Crohn disease over the last 10 years, somewhat atypical in nature in that she only has a flare-up once a year and otherwise has no bouts of diarrhea with it. 2. Abnormal sigmoid colon with an inflammatory area causing hydroureter and hydronephrosis by compressing the right ureter. I will go over all of this with Dr. Rodriguez and she will follow. I think that the patient will require some sort of surgery. It is not clear to me whether this is Crohn disease or an extrinsic process causing obstruction or whether this is indeed diverticulitis or diverticulitis. I have explained all this to the patient and she understands. Dr. Rodriguez will undergo all of the surgical options with her. Ricardo Fisher MD JTT/alice , 05:34 PM , 05:43 PM
[2018-03-28] MEDS: Ciprofloxacin 400 MG/200 ML 400 MG/200 ML PIGGYBACK IV.SIG SCH ×2 (00:24→11:35)
[2018-03-28] MEDS: MethylPREDNISolone Sod Succinate Inj 40 MG/ML Vial IV.PUSH SCH (02:10)
[2018-03-28 04:37] VITALS: O2SAT 97
[2018-03-28 05:56] LABS: Hematocrit 35.1 % (35.0-46.0); Hemoglobin 11.5 gm/dL (11.6-15.3); Lymph # (Auto) 0.6 th/mm3 (1.0-4.8); Lymph % (Auto) 6.6 % (9.0-44.0); Mean Corpuscular HGB Conc 32.6 % (32.0-36.0); Mean Corpuscular Hemoglobin 28.1 pg (27.0-34.0); Mean Platelet Volume 7.4 fL (7.0-11.0); Mono # (Auto) 0.5 th/mm3 (0.0-0.9); Mono % (Auto) 5.3 % (0.0-8.0); Neut % (Auto) 88.1 % (16.0-70.0); Platelet Count 411 th/mm3 (150-450); Red Blood Count 4.09 mil/mm3 (4.00-5.30); Red Cell Distribution Width 16.2 % (11.6-17.2); White Blood Count 9.1 th/mm3 (4.0-11.0)
[2018-03-28 06:16] LABS: Anion Gap 6 meq/L (5-15); Blood Urea Nitrogen 9 mg/dL (7-18); Calcium 8.8 mg/dL (8.5-10.1); Carbon Dioxide 31.1 meq/L (21.0-32.0); Chloride 103 meq/L (98-107); Glomerular Filtration Rate Greater Than 89 mL/min (>89); Glucose,Random 190 mg/dL (74-106); Potassium 4.4 meq/L (3.5-5.1); Sodium 140 meq/L (136-145)
--- NOTE | 2018-03-28 08:25 | P.PNGI ---
Subjective Interval history: Pt reports feeling much better today, no more nausea. States still having some mild RLQ and mid lower abdominal pain but overall has improved. She is currently tolerating her diet. <BasilhomeroOliverMarcelle - Last Filed: 03/28/18 12:02> Interval history: Patient was seen and examined, feeling better, being discharged today and will follow-up as an outpatient in 1 week <Cole Ricardo - Last Filed: 03/29/18 11:55> Physical Exam Vital signs: Vital Signs 03/27/18 12:11 03/27/18 13:10 03/27/18 16:00 Temperature 97.6 F 98.0 F 98.6 F Pulse Rate 60 57 L 55 L Respiratory Rate 20 22 16 Blood Pressure 178/78 H Pulse Oximetry 100 95 97 03/27/18 20:00 03/28/18 00:00 03/28/18 04:00 Temperature 97.8 F 97.7 F 97.8 F Pulse Rate 58 L 58 L 50 L Respiratory Rate 16 16 16 Blood Pressure 102/66 102/53 L 94/46 L Pulse Oximetry 96 58 L 97 03/28/18 08:00 Temperature 97.5 F L Pulse Rate 50 L Respiratory Rate 18 Blood Pressure 117/75 Pulse Oximetry 97 Intake & Output 03/27/18 03/28/18 03/28/18 18:59 06:59 18:59 Intake Total 1600 / 1600 900 / 900 Balance 1600 / 1600 900 / 900 Intake: IV 1200 / 1200 D5W/1/2NS + KCL 20 mEq Inj 1, 1000 / 1000 000 ML @ 100 mls/hr IV.CONT . Q10H [facility] Rx#:[id number] Cipro 400 MG/200 ML Inj 400 mg 200 / 200 In 200 ml @ 200 mls/hr IV.SIG Q12H [facility] Rx#:[id number] Oral 900 / 900 Anesthesia Amount 400 / 400 Other: # Voids 3 Date of Last Bowel Movement 03/27/18 # Bowel Movements 3 - Constitutional no acute distress - Routine HEENT Exam Head: Present: normocephalic, atraumatic - Routine Respiratory Exam Absent: accessory muscle use - Routine Cardiovascular Exam Present: RRR - Routine Abdominal Exam Present: soft, normoactive bowel sounds. Absent: tenderness, distended - Routine Skin Exam Present: dry, warm - Routine Neurological Exam Present: alert, oriented X3 <Marcelle Vargas - Last Filed: 03/28/18 12:02> Vital signs: Vital Signs 03/28/18 12:43 Temperature 98.0 F Pulse Rate 68 Respiratory Rate 20 Blood Pressure 121/69 Intake & Output 03/28/18 03/29/18 03/29/18 18:59 06:59 18:59 Intake Total 200 / 200 Balance 200 / 200 Intake: IV 200 / 200 Cipro 400 MG/200 ML Inj 400 mg 200 / 200 In 200 ml @ 200 mls/hr IV.SIG Q12H [facility] Rx#:[id number] Other: Date of Last Bowel Movement 03/27/18 <Cole Ricardo - Last Filed: 03/29/18 11:55> Results - Labs CBC & Chem 7: 03/28/18 04:56 03/28/18 04:56 Laboratory Results - last 24 hr 03/26/18 03/27/18 03/27/18 09:49 09:13 09:13 WBC 9.0 RBC 4.10 Hgb 11.7 Hct 35.2 MCV 85.9 MCH 28.5 MCHC 33.2 RDW 16.3 Plt Count 442 MPV 7.7 Neut % (Auto) 88.9 H Lymph % (Auto) 6.9 L [place] % (Auto) 4.1 Eos % (Auto) 0.0 Baso % (Auto) 0.1 Neut # (Auto) 8.0 H Lymph # (Auto) 0.6 L [place] # (Auto) 0.4 Eos # (Auto) 0.0 Baso # (Auto) 0.0 WBC Differential . Differential Comment Auto diff final Sodium 139 Potassium 4.1 Chloride 102 Carbon Dioxide 27.5 Anion Gap 10 BUN 6 L Creatinine 0.50 Estimated GFR Greater than 89 Random Glucose 171 H Calcium 9.0 Carcinoembryonic Ag Urine Color Cecy Urine Clarity Cloudy H Urine pH 5.0 Ur Specific [place] 1.023 Urine Protein 30 H Urine Glucose (UA) Negative Urine Ketones 20 Urine Occult Blood Negative Urine Nitrate Positive H Urine Bilirubin Negative Urine Urobilinogen Less than 2 Ur Leukocyte Esterase Moderate H Urine RBC 2 Urine WBC 47 H Ur Squamous Epith Cells 10 Urine Bacteria Moderate H Urine Mucus Few H Micro UA Comment Culture indicated Urine Culture Comments Culture indicated 03/27/18 03/28/18 03/28/18 13:45 04:56 04:56 WBC 9.1 RBC 4.09 Hgb 11.5 L Hct 35.1 MCV 86.0 MCH 28.1 MCHC 32.6 RDW 16.2 Plt Count 411 MPV 7.4 Neut % (Auto) 88.1 H Lymph % (Auto) 6.6 L [place] % (Auto) 5.3 Eos % (Auto) 0.0 Baso % (Auto) 0.0 Neut # (Auto) 8.0 H Lymph # (Auto) 0.6 L [place] # (Auto) 0.5 Eos # (Auto) 0.0 Baso # (Auto) 0.0 WBC Differential . Differential Comment Auto diff final Sodium 140 Potassium 4.4 Chloride 103 Carbon Dioxide 31.1 Anion Gap 6 BUN 9 Creatinine 0.58 Estimated GFR Greater than 89 Random Glucose 190 H Calcium 8.8 Carcinoembryonic Ag 0.9 Urine Color Urine Clarity Urine pH Ur Specific [place] Urine Protein Urine Glucose (UA) Urine Ketones Urine Occult Blood Urine Nitrate Urine Bilirubin Urine Urobilinogen Ur Leukocyte Esterase Urine RBC Urine WBC Ur Squamous Epith Cells Urine Bacteria Urine Mucus Micro UA Comment Urine Culture Comments Microbiology 03/26/18 20:00 Stool Enteric Pathogens (PCR) - Final No enteric pathogens detected by PCR (No Salmonella sp., Shigella sp., Campylobacter sp., Yersinia enterocolitica, Vibrio sp., Norovirus, or EHEC (Shiga Toxin 1 or Shiga Toxin 2) detected. 03/26/18 09:49 Random Urine Urine Culture - Preliminary gram negative rods <Marcelle Vargas - Last Filed: 03/28/18 12:02> - Labs CBC & Chem 7: 03/28/18 04:56 03/28/18 04:56 Microbiology 03/26/18 20:00 Stool Cryptosporidium Antigen - Final Negative - No Cryptosporicium antigen detected In selected cases of patients with a history of immunosuppression or foreign travel, a full ova and parasites examination may be desired. Contact the microbiology lab if full workup is indicated and subit another specimen for testing. 03/26/18 20:00 Stool Giardia Antigen (DYLAN) - Final Negative - No Giardia Antigen detected In selected cases of patients with a history of immunosuppression or foreign travel, a full ova and parasites examination may be desired. Contact the microbiology lab if full workup is indicated and subit another specimen for testing. 03/26/18 09:49 Random Urine Urine Culture - Final Escherichia coli <Cole Ricardo - Last Filed: 03/29/18 11:55> Assessment and Plan - Plan Assessment: - Crohns disease- presented with abdominal pain Complaining of RLQ pain that began ten days ago, was intermittent, constant for the past 3 days, described as sharp and aching, radiates to midline. Some improvement after BMs. Reports more mucous in her stool, denies hematochezia and melena. Reports nausea, denies emesis. States weight loss has been intentional, she is currently tried the Keto diet. CT abdomen and pelvis W IV contrast (03/26) Hydronephrosis and hydroureter of the right kidney. At least partial renal obstruction is due to the inflammatory process identified in the deep pelvis. There is thickening of the distal descending and most of the sigmoid colon with pericolonic stranding. The right ureter passes through this inflammatory process. Findings in the sigmoid are nonspecific. Stable, benign-appearing 1 cm cyst laterally in the midpole of the left kidney. Pt being managed outpatient by Dr. Weems- on Azathioprine and Mesalamine- was previously advised to be started on Remicade but copay was too high and pt could no afford. Last colonoscopy Sep 08 --> Normal terminal ileum, abnormal mucosa in the cecum, sigmoid, ascending, transverse, and descending colon. Mucosa was erythematous, friable and had granularity, loss of vascularity, scarring, deep ulcers, vascular ectasia, erosions and pseudopolyps. Colonic mucosa appeared normal in the rectum. Pathology (terminal ileum) small intestinal mucosa with enteritis mild activity, preserved villous architecture, prominent lymphoid follicles present, no granulomas seen (right colon) colonic mucosa with active colitis, cryptitis and erosive changes (transverse colon) colonic mucosa with active colitis, cryptitis and erosive changes (left colon polyp) benign polypoid colonic mucosa fold with lymphoid aggregate present (rectum) colonic/ rectal mucosa with no significant pathologic changes Denies family history of colon cancer. - Nausea with no emesis- likely multifactorial given renal obstruction EGD (aug 25, 2017) Reflux esophagitis in the distal esophagus, acute gastritis in the gastric antrum, duodenal mucosa showed no abnormalities in the 2nd part of the duodenum. - Renal obstruction/hydronephrosis- per imaging above Pt repots history of KELI when she was first diagnosed with Crohns in 2009, states renal function improved to normal and she has not been following up with nephrology Colonoscopy (03/27) Terminal ileum there was no ulcerations or erythema to suggest Crohn disease that is active, took biopsy from the ileocecal valve, there was narrowing in the sigmoid with some nodularity biopsies were done, 2 polyps in the sigmoid removed by snare. Rectum: Small EGD (03/27) Esophagus: Irregular Z line biopsy was done. Stomach: Gastritis biopsy was done from the antrum.Duodenum: Normal (03/28) Case discussed by Dr. Ricardo and the radiologist Dr. Jain he thinks there might be malignant inflammatory cancer in the sigmoid causing obstruction of the ureter on the right side with hydronephrosis. Pt seen by Dr. Fihser last night who feels this will likely require surgery and his note states Dr. Rodriguez will be following with pt today to discuss surgical options. Recommendations; EGD and colon biopsy pending Further recommendations per CRS Our service will sign off, please reconsult as needed Have pt follow up with GI After DC Pt has been seen and examined by myself and Dr. Ricardo and this note is written on his behalf <Marcelle Vargas - Last Filed: 03/28/18 12:02> - Plan Patient was seen and examined, agree with above note, biopsy showed inflammatory changes consistent with Crohn disease in the sigmoid, patient was discharged she will follow-up as an outpatient she might need repeat colonoscopy in 2 month with more biopsy to ensure that there is no malignancy in that area <Cole Ricardo - Last Filed: 03/29/18 11:55>
--- NOTE | 2018-03-28 08:37 | P.PN ---
Subjective Interval history: Abdominal pain, Abnormal CT Feels much better, still with mild pain wants to go home Physical Exam Vital signs: Vital Signs 03/27/18 12:11 03/27/18 13:10 03/27/18 16:00 Temperature 97.6 F 98.0 F 98.6 F Pulse Rate 60 57 L 55 L Respiratory Rate 20 22 16 Blood Pressure 178/78 H Pulse Oximetry 100 95 97 03/27/18 20:00 03/28/18 00:00 03/28/18 04:00 Temperature 97.8 F 97.7 F 97.8 F Pulse Rate 58 L 58 L 50 L Respiratory Rate 16 16 16 Blood Pressure 102/66 102/53 L 94/46 L Pulse Oximetry 96 58 L 97 03/28/18 08:00 Temperature 97.5 F L Pulse Rate 50 L Respiratory Rate 18 Blood Pressure 117/75 Pulse Oximetry 97 Intake & Output 03/27/18 03/28/18 03/28/18 18:59 06:59 18:59 Intake Total 1600 / 1600 900 / 900 Balance 1600 / 1600 900 / 900 Intake: IV 1200 / 1200 D5W/1/2NS + KCL 20 mEq Inj 1, 1000 / 1000 000 ML @ 100 mls/hr IV.CONT . Q10H [facility] Rx#:[id number] Cipro 400 MG/200 ML Inj 400 mg 200 / 200 In 200 ml @ 200 mls/hr IV.SIG Q12H [facility] Rx#:[id number] Oral 900 / 900 Anesthesia Amount 400 / 400 Other: # Voids 3 Date of Last Bowel Movement 03/27/18 03/27/18 # Bowel Movements 3 - Constitutional no acute distress - Routine Abdominal Exam Comments: Soft, nondistended, mildly tender RLQ Results - Labs CBC & Chem 7: 03/28/18 04:56 03/28/18 04:56 Laboratory Results - last 24 hr 03/26/18 03/27/18 03/27/18 09:49 09:13 09:13 WBC 9.0 RBC 4.10 Hgb 11.7 Hct 35.2 MCV 85.9 MCH 28.5 MCHC 33.2 RDW 16.3 Plt Count 442 MPV 7.7 Neut % (Auto) 88.9 H Lymph % (Auto) 6.9 L [place] % (Auto) 4.1 Eos % (Auto) 0.0 Baso % (Auto) 0.1 Neut # (Auto) 8.0 H Lymph # (Auto) 0.6 L [place] # (Auto) 0.4 Eos # (Auto) 0.0 Baso # (Auto) 0.0 WBC Differential . Differential Comment Auto diff final Sodium 139 Potassium 4.1 Chloride 102 Carbon Dioxide 27.5 Anion Gap 10 BUN 6 L Creatinine 0.50 Estimated GFR Greater than 89 Random Glucose 171 H Calcium 9.0 Carcinoembryonic Ag Urine Color Cecy Urine Clarity Cloudy H Urine pH 5.0 Ur Specific [place] 1.023 Urine Protein 30 H Urine Glucose (UA) Negative Urine Ketones 20 Urine Occult Blood Negative Urine Nitrate Positive H Urine Bilirubin Negative Urine Urobilinogen Less than 2 Ur Leukocyte Esterase Moderate H Urine RBC 2 Urine WBC 47 H Ur Squamous Epith Cells 10 Urine Bacteria Moderate H Urine Mucus Few H Micro UA Comment Culture indicated Urine Culture Comments Culture indicated 03/27/18 03/28/18 03/28/18 13:45 04:56 04:56 WBC 9.1 RBC 4.09 Hgb 11.5 L Hct 35.1 MCV 86.0 MCH 28.1 MCHC 32.6 RDW 16.2 Plt Count 411 MPV 7.4 Neut % (Auto) 88.1 H Lymph % (Auto) 6.6 L [place] % (Auto) 5.3 Eos % (Auto) 0.0 Baso % (Auto) 0.0 Neut # (Auto) 8.0 H Lymph # (Auto) 0.6 L [place] # (Auto) 0.5 Eos # (Auto) 0.0 Baso # (Auto) 0.0 WBC Differential . Differential Comment Auto diff final Sodium 140 Potassium 4.4 Chloride 103 Carbon Dioxide 31.1 Anion Gap 6 BUN 9 Creatinine 0.58 Estimated GFR Greater than 89 Random Glucose 190 H Calcium 8.8 Carcinoembryonic Ag 0.9 Urine Color Urine Clarity Urine pH Ur Specific [place] Urine Protein Urine Glucose (UA) Urine Ketones Urine Occult Blood Urine Nitrate Urine Bilirubin Urine Urobilinogen Ur Leukocyte Esterase Urine RBC Urine WBC Ur Squamous Epith Cells Urine Bacteria Urine Mucus Micro UA Comment Urine Culture Comments Microbiology 03/26/18 20:00 Stool Enteric Pathogens (PCR) - Final No enteric pathogens detected by PCR (No Salmonella sp., Shigella sp., Campylobacter sp., Yersinia enterocolitica, Vibrio sp., Norovirus, or EHEC (Shiga Toxin 1 or Shiga Toxin 2) detected. 03/26/18 09:49 Random Urine Urine Culture - Preliminary gram negative rods Assessment and Plan - Assessment (1) Crohns disease Code(s): K50.90 - Crohn's disease, unspecified, without complications Status: Chronic Plan: Unfortunately, with the distal nature of her disease (which has always been true ), surgery would have a high likelihood of a permanent stoma. Luckily, there are currently no indications for surgery. She has responded well to medical therapy. If biopsies are positive however, this would obviously change. I will continue to follow along with you. Management of Crohn's Disease per Gastroenterology (2) Hydronephrosis Code(s): N13.30 - Unspecified hydronephrosis Status: Acute Plan: Management per Medicine/Urology
[2018-03-28] MEDS: Mesalamine 800 MG Tablet DR PO SCH ×2 (09:01→13:17)
[2018-03-28] MEDS: Dicyclomine 10 MG Capsule PO SCH ×2 (09:01→13:17)
[2018-03-28] MEDS: Spironolactone 25 MG Tablet PO SCH ×2 (09:02→13:29)
[2018-03-28] MEDS: Atenolol 100 MG Tablet PO SCH (09:04)
[2018-03-28] MEDS: azaTHIOprine 50 MG Tablet PO SCH ×2 (09:04→13:17)
[2018-03-28] MEDS: Lisinopril 10 MG Tablet PO SCH ×2 (09:04→13:25)
--- NOTE | 2018-03-28 11:17 | P.PNFP ---
Subjective Interval history: She is seen and examined this morning. She states that she is doing well. She is eager to go home. No fevers or chills, no chest pain, no shortness of breath , slight abdominal pain in the epigastric region. Results - Labs Result diagrams: 03/28/18 04:56 03/28/18 04:56 Abnormal lab results 03/26/18 03/28/18 03/28/18 Range/Units 09:49 04:56 04:56 Hgb 11.5 L (11.6-15.3) gm/dL Neut % (Auto) 88.1 H (16.0-70.0) % Lymph % (Auto) 6.6 L (9.0-44.0) % Neut # (Auto) 8.0 H (1.8-7.7) th/mm3 Lymph # (Auto) 0.6 L (1.0-4.8) th/mm3 Random Glucose 190 H (74-106) mg/dL Urine Clarity Cloudy H (Clear) Urine Protein 30 H (Neg-Trace) mg/dL Urine Nitrate Positive H (Negative) Ur Leukocyte Esterase Moderate H (Negative) Urine WBC 47 H (0-5) /hpf Urine Bacteria Moderate H (None) /hpf Urine Mucus Few H (Occasional) /lpf Short CBC 03/28/18 Range/Units 04:56 WBC 9.1 (4.0-11.0) th/mm3 Hgb 11.5 L (11.6-15.3) gm/dL Hct 35.1 (35.0-46.0) % Plt Count 411 (150-450) th/mm3 [facility] 03/28/18 04:56 Sodium 140 Potassium 4.4 Chloride 103 Carbon Dioxide 31.1 BUN 9 Creatinine 0.58 Calcium 8.8 Urine 03/26/18 Range/Units 09:49 Urine Color Cecy (Yellw/Straw) Urine Clarity Cloudy H (Clear) Urine pH 5.0 (5.0-8.5) Ur Specific Marshall 1.023 (1.002-1.035) Urine Protein 30 H (Neg-Trace) mg/dL Urine Glucose (UA) Negative (Negative) mg/dL Physical Exam Vital signs: Vital Signs 03/27/18 12:11 03/27/18 13:10 03/27/18 16:00 Temperature 97.6 F 98.0 F 98.6 F Pulse Rate 60 57 L 55 L Respiratory Rate 20 22 16 Blood Pressure 178/78 H Pulse Oximetry 100 95 97 03/27/18 20:00 03/28/18 00:00 03/28/18 04:00 Temperature 97.8 F 97.7 F 97.8 F Pulse Rate 58 L 58 L 50 L Respiratory Rate 16 16 16 Blood Pressure 102/66 102/53 L 94/46 L Pulse Oximetry 96 58 L 97 03/28/18 08:00 Temperature 97.5 F L Pulse Rate 50 L Respiratory Rate 18 Blood Pressure 117/75 Pulse Oximetry 97 Intake & Output 03/27/18 03/28/18 03/28/18 18:59 06:59 18:59 Intake Total 1600 / 1600 1000 / 1000 Balance 1600 / 1600 1000 / 1000 Intake: IV 1200 / 1200 100 / 100 D5W/1/2NS + KCL 20 mEq Inj 1, 1000 / 1000 000 ML @ 100 mls/hr IV.CONT . Q10H [facility]AL[facility]ERTO Rx#:[id number] Cipro 400 MG/200 ML Inj 400 mg 200 / 200 In 200 ml @ 200 mls/hr IV.SIG Q12H [facility]AL[facility]ERTO Rx#:[id number] Flagyl 500 MG Inj 100 ML @ 100 100 / 100 mls/hr IV.SIG Q8H ADALBERTO Rx#: [id number] Oral 900 / 900 Anesthesia Amount 400 / 400 Other: # Voids 3 Date of Last Bowel Movement 03/27/18 03/27/18 # Bowel Movements 3 Narrative: GENERAL: obese white female laying in bed, in no acute distress SKIN: Warm and dry. HEAD: Atraumatic. Normocephalic. EYES: No scleral icterus. No injection or drainage. ENT: No nasal bleeding or discharge. NECK: Trachea midline. No JVD. CARDIOVASCULAR: Regular rate and rhythm. RESPIRATORY: No accessory muscle use. Clear to auscultation. Breath sounds equal bilaterally. GASTROINTESTINAL: Abdomen soft, Slight tenderness in RLQ, nondistended. Hepatic and splenic margins not palpable. MUSCULOSKELETAL: Extremities without clubbing, cyanosis, or edema. No obvious deformities. NEUROLOGICAL: Awake and alert. No obvious cranial nerve deficits. Motor grossly within normal limits. Normal speech. PSYCHIATRIC: Appropriate mood and affect; insight and judgment normal. Assessment and Plan - Assessment (1) Colitis Code(s): K52.9 - Noninfective gastroenteritis and colitis, unspecified Status : Acute Plan: RLQ pain of 10 days duration, may be due to a Crohn's disease flare. Pain has much improved. Spoke with GI and they started that pt does not have to d/c'd home on abx. Can give Prednisone 40mg qD until her next outpatient appt with GI. They will then begin a taper. CT abdomen and pelvis W IV contrast (03/26) Hydronephrosis and hydroureter of the right kidney. At least partial renal obstruction is due to the inflammatory process identified in the deep pelvis. There is thickening of the distal descending and most of the sigmoid colon with pericolonic stranding. Stool studies: -Enteric pathogen negative -Cryptosporidium antigen pending -Giardia antigen pending GI consulted, appreciate recommendations -EGD and colonoscopy on 03/27 Terminal ileum: no ulcerations or erythema to suggest Crohn disease that is active, took biopsy from the ileocecal valve, there was narrowing in the sigmoid with some nodularity biopsies were done, 2 polyps in the sigmoid removed by snare Rectum: Small Esophagus: Irregular Z line biopsy was done Stomach: Gastritis biopsy was done from the antrum Duodenum: Normal -Concern for possible cancer, consulted colorectal surgery -Hold Lovenox -Stool studies -Ciprofloxacin 400 mg IV every 12 hours and metronidazole 500 mg IV every 8 hours (03/26-03/28) -methylprednisolone 40 mg IV every 8 hours -Supportive [id number] PRN and pain control Colorectal surgery consulted by GI, appreciate recommendations -currently no indications for surgery. has responded well to medical therapy. On [place] p.o. every 4 hours as needed per pain scale with morphine 4 mg IV as needed for breakthrough (2) Hydronephrosis Code(s): N13.30 - Unspecified hydronephrosis Status: Acute Plan: CT abdomen/pelvis on 03/26 revealed: Benign-appearing 1.1 cm cyst laterally in the midpole of the left kidney. Mild hydronephrosis and hydroureter of the right kidney appears to be due to partial distal ureteric obstruction as it traverses through the inflammatory process adjacent to the sigmoid in the deep pelvis. Urology consulted appreciate recommendations - No acute intervention needed - Once primary GI issue will improve, and inflammation subsides, hydronephrosis will improve. (3) UTI (urinary tract infection) Code(s): N39.0 - Urinary tract infection, site not specified Status: Acute Plan: Patient denied any symptoms of dysuria, urinary frequency, urgency, nor hematuria or any unusual vaginal discharge on admission. UA shows positive nitrates, moderate glucose esterase, 47 WBCs, moderate bacteria. Also had 10 squamous epithelial cells, may be contamination. Urine culture: E. coli Patient currently on ciprofloxacin IV for her colitis, this will simultaneously treat UTI as well. Will prescribe one extra day of Cipro to take upon d/c. (4) Crohns disease Code(s): K50.90 - Crohn's disease, unspecified, without complications Status: Chronic Plan: followed outpatient by Dr. Weems Continue at home medications -Mesalamine 100 mg p.o. 3 times daily -Azathioprine 50mg po TID -Dicyclomine 10 mg p.o. 4 times daily (5) Hypertension Code(s): I10 - Essential (primary) hypertension Status: Chronic Plan: Continue at home medications -Atenolol 100 mg p.o. daily -Lisinopril 10 mg p.o. daily -Spironolactone 25 mg p.o. daily As needed Vasotec 1.25 mg IV for BP >180/100 (6) Hyperlipidemia Code(s): E78.5 - Hyperlipidemia, unspecified Status: Chronic Plan: Continue at home pravastatin 40 mg p.o. daily (7) Nutrition, metabolism, and development symptoms Code(s): R63.8 - Other symptoms and signs concerning food and fluid intake Status: Acute Plan: Fluids: KCl 20 mEq/D5W/NaCL 0.45% @100 mls/hr Electrolytes: monitor and replete as needed Nutrition: Cardiac diet (8) DVT prophylaxis Status: Acute Plan: Lovenox 40 mg SQ daily, held for procedures today - Assessment and Plan 87-year-old white female with past medical history of Crohn's disease presenting with right lower quadrant abdominal pain of 10 days duration. May be due to a Crohn's flare. Discussed Condition With: Dr. Jacobs, Dr. Delcid Discharge Planning: Home today (3) UTI (urinary tract infection) Qualifiers: Urinary tract infection type: site unspecified Hematuria presence: without hematuria Qualified Code(s): N39.0 - Urinary tract infection, site not specified
[2018-03-28] MEDS: KCL 20 mEq/D5W/NaCl 0.45% Inj 1,000 ML IV.CONT SCH (11:36)
[2018-03-28] MEDS: Enoxaparin Inj 40 MG/0.4 ML Syringe SQ SCH (15:12)
--- NOTE | 2018-03-28 15:34 | P.DS ---
Date of admission: 03/26/18 12:17 Primary care physician: Laron Jacobs MD Brief History from admission: 57-year-old white female with a history of Crohn's disease, hypertension, hyperlipidemia presents to the emergency room with a 10 day history of worsening symptoms of right sided abdominal pain mostly in the lower area associated with nausea and intermittent fevers and chills. She has not had any active vomiting but had poor appetite during the past week. She states there is no significant changes in her bowel movement but does describe it as loose and nonbloody. She states that she is currently on 2 different types of medication for her Crohn's disease and is being seen by Dr. Weems. She has not had any changes in medication or dosages recently. She denies any recent sick contacts. She denies any symptoms of dysuria, urinary frequency, urgency, nor hematuria or any unusual vaginal discharge. DS: Diagnosis - Discharge Diagnosis (1) Colitis Status: Acute (2) Hydronephrosis Status: Acute (3) UTI (urinary tract infection) Status: Acute (4) Crohns disease Status: Chronic (5) Hypertension Status: Chronic (6) Hyperlipidemia Status: Chronic (7) Nutrition, metabolism, and development symptoms Status: Acute (8) DVT prophylaxis Status: Acute DS: Medications - Discharge Medications Prescriptions: prednisone See Label Instructions .ROUTE .COMPLEX 14 Days #28 tab DS: Summary Hospital Course: 57-year-old female with past medical history of Crohn's disease presenting with 10 day history of RLQ abdominal pain on 03/26. Thought to be due to a Crohn's flare. CT abdomen and pelvis on admission revealed thickening of the distal descending and most of the sigmoid colon with pericolonic stranding. There also was hydronephrosis and hydroureter of the right kidney. At least partial renal obstruction is due to the inflammatory process identified in the deep pelvis. Patient was started on Flagyl and ciprofloxacin IV. GI was consulted who performed an EGD and colonoscopy on 03/27. Findings in the terminal ileum showed no ulcerations or erythema to suggest Crohn disease that is active, took biopsy from the ileocecal valve, there was narrowing in the sigmoid with some nodularity biopsies were done, 2 polyps in the sigmoid removed by snare. Due to this they believed that there may be cancer and they consulted colorectal surgery. Colorectal surgery evaluation made them believe that patient had a Crohn's flare and surgery was not to be performed at this time. Urology was consulted due to the hydronephrosis. They stated that it would improve once the primary GI issue improved. Patient was also found to have a UTI. She was discharged home with 1 more day of ciprofloxacin p.o. and prednisone 40 mg po to be taken until following up with her GI doctor who will perform the taper. - Time Spent with Patient Total time spent providing and/or coordinating discharge services: Less than 30 minutes - Quality: VTE Deep Vein Thrombosis/Pulmonary Embolism Present on Admission: No Exam Vital signs: Vital Signs 03/27/18 16:00 03/27/18 20:00 03/28/18 00:00 Temperature 98.6 F 97.8 F 97.7 F Pulse Rate 55 L 58 L 58 L Respiratory Rate 16 16 16 Blood Pressure 102/66 102/53 L Pulse Oximetry 97 96 58 L 03/28/18 04:00 03/28/18 08:00 Temperature 97.8 F 97.5 F L Pulse Rate 50 L 50 L Respiratory Rate 16 18 Blood Pressure 94/46 L 117/75 Pulse Oximetry 97 97 Intake & Output 03/27/18 03/28/18 03/28/18 18:59 06:59 18:59 Intake Total 2600 / 2600 1200 / 1200 200 / 200 Balance 2600 / 2600 1200 / 1200 200 / 200 Intake: IV 2200 / 2200 300 / 300 200 / 200 D5W/1/2NS + KCL 20 mEq Inj 1, 2000 / 2000 000 ML @ 100 mls/hr IV.CONT . Q10H [facility] Rx#:[id number] Cipro 400 MG/200 ML Inj 400 mg 200 / 200 200 / 200 200 / 200 In 200 ml @ 200 mls/hr IV.SIG Q12H [facility]ALBERTO Rx#:[id number] Flagyl 500 MG Inj 100 ML @ 100 100 / 100 mls/hr IV.SIG Q8H [facility]ALBERTO Rx#: [id number] Oral 900 / 900 Anesthesia Amount 400 / 400 Other: # Voids 3 Date of Last Bowel Movement 03/27/18 03/27/18 # Bowel Movements 3 Results Procedures completed during hospitalization: EGD, Colonoscopy on 03/27 Labs on day of discharge: Labs from last 24 hours 03/28/18 03/28/18 04:56 04:56 WBC 9.1 RBC 4.09 Hgb 11.5 L Hct 35.1 MCV 86.0 MCH 28.1 MCHC 32.6 RDW 16.2 Plt Count 411 MPV 7.4 Neut % (Auto) 88.1 H Lymph % (Auto) 6.6 L Morgan % (Auto) 5.3 Eos % (Auto) 0.0 Baso % (Auto) 0.0 Neut # (Auto) 8.0 H Lymph # (Auto) 0.6 L Morgan # (Auto) 0.5 Eos # (Auto) 0.0 Baso # (Auto) 0.0 WBC Differential . Differential Comment Auto diff final Sodium 140 Potassium 4.4 Chloride 103 Carbon Dioxide 31.1 Anion Gap 6 BUN 9 Creatinine 0.58 Estimated GFR Greater than 89 Random Glucose 190 H Calcium 8.8 - Impressions ITS Impressions Abdomen/Pelvis CT 03/26/18 09:30 CONCLUSION: 1. Patient's symptoms are probably due to some hydronephrosis and hydroureter of the right kidney. 2. At least partial renal obstruction is due to the inflammatory process identified in the deep pelvis. There is thickening of the distal descending and most of the sigmoid colon with pericolonic stranding. The right ureter passes through this inflammatory process. 3. Findings in the sigmoid are nonspecific. This could represent Crohn's disease as reported in the clinical history. However, other entities include an inflammatory carcinoma or possibly diverticulitis although no discrete diverticula are identified. Endoscopy may be useful for further evaluation. 4. Stable, benign-appearing 1 cm cyst laterally in the midpole of the left kidney. Discharge Plan - Discharge Disposition Patient Disposition: 01 Discharge Home - Discharge Condition Condition: Stable - Discharge Order Discharge Orders: Discharge Order (Routine); Ordered 03/28/18 Ordered By: Sabina Marin - Physicians Team Primary Care Provider: Laron Jacobs Attending Provider: Laron Jacobs Other Providers: Cole Ricardo MD ; Fly Ignacio MD ; Ricardo Fisher MD
[2018-03-28 16:02] VITALS: BP 121/69; PULSE 68; RESP 20; TEMP 98
== END 2018-03-28 16:18 | disposition home or self-care (01) ==
LOC: NEPE 08:50 → NEDA 12:17 → H6YA 14:50
PROVIDERS: ADMIT Family Medicine; ATTEND Family Medicine
PROC: PANENDO (2018-03-27 11:30)
PROC: COLONOS (2018-03-27 11:30)